=== PATIENT | female | born 1965 | race Caucasian/White ===

== ENCOUNTER 2024-01-24 23:04 | Emergency (ER) | payer OTHER, SELFPAY ==
[2024-01-24 23:05] VITALS: BMI 27.8
[2024-01-24 23:22] VITALS: BP 142/85; PULSE 88; RESP 18; TEMP 36.6; O2SAT 96
--- NOTE | 2024-01-24 23:51 | PD.EDEYE ---
ED Eye Problem RME/HPI General Chief complaint: Eye Problems Stated complaint: RIGHT EYE REDNESS AND SWELLING Time Seen by Provider: 01/24/24 23:51 Source: patient Arrival date/time: 01/24/24 23:04 58-year-old female presents emergency department complaining of right eye redness and yellow drainage that started this morning. Patient reports right eye is pruritic. Patient denies any vision changes. 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 Mode of arrival: ambulatory Limitations: no limitations Related Data Previous Rx's ?Medication ?Instructions ?Recorded hydrocodone 5 mg-acetaminophen 300 1 tab PO Q6H PRN pain #10 tabs 02/07/19 mg tablet ondansetron 4 mg disintegrating 4 mg PO Q6H PRN nausea and 02/07/19 tablet vomiting #10 tabs ondansetron 4 mg disintegrating 4 mg PO Q6H PRN nausea and 11/01/20 tablet vomiting #10 tabs albuterol sulfate 90 mcg/actuation 2 puff inhalation QID PRN 03/25/21 aerosol inhaler shortness of breath or wheezing #8.5 grams azithromycin 250 mg tablet See Rx Instructions PO .COMPLEX #6 03/25/21 tabs erythromycin 5 mg/gram (0.5 %) eye 0.5 inch ophthalmic (eye) QID 5 01/24/24 ointment days #3.5 grams Allergies Allergy/AdvReac Type Severity Reaction Status Date / Time prochlorperazine Allergy Severe HALLUCINATI Verified 03/25/21 19:08 ONS Sulfa (Sulfonamide Allergy Intermediate RASH Verified 03/25/21 19:08 Antibiotics) Review of Systems Review of Systems Systems Reviewed: All systems reviewed, normal except as documented Constitutional Constitutional: Reports system reviewed and no additional complaints, except as documented, Denies body ache(s), Denies chills and Denies fever(s) Eyes Eyes: Reports system reviewed and no additional complaints, except as documented, Denies change in vision, Reports eye discharge, Reports irritation and Reports itchy eyes ENT Ears, Nose, Mouth, and Throat: Reports system reviewed and no additional complaints, except as documented, Denies disequilibrium, Denies dizziness, Denies sore throat and Denies vertigo Cardiovascular Cardiovascular: Reports system reviewed and no additional complaints, except as documented, Denies chest pain and Denies dyspnea Respiratory Respiratory: Reports system reviewed and no additional complaints, except as documented, Denies chest congestion, Denies cough and Denies dyspnea Gastrointestinal Gastrointestinal: Reports system reviewed and no additional complaints, except as documented, Denies abdominal pain, Denies nausea and Denies vomiting Musculoskeletal Musculoskeletal: Reports system reviewed and no additional complaints, except as documented, Denies abnormal gait and Denies arthralgias Integumentary/Breasts Skin/Breast: Reports system reviewed and no additional complaints, except as documented, Denies erythema, Denies rash and Denies wounds Neurologic Neurologic: Reports system reviewed and no additional complaints, except as documented, Denies abnormal gait, Denies disequilibrium, Denies dizziness and Denies vertigo Allergic/Immunologic Allergic/Immunologic: Reports itchy eyes Past Medical History Past Medical History CARDIAC: Positive Hypercholesterolemia; Negative Cardiac Disorders or Congestive Heart Failure RESPIRATORY: Negative Chronic Obstructive Pulmonary Disease (COPD) or Asthma GASTROINTESTINAL: Positive Ulcer GENITOURINARY: Negative Renal Disease ENDOCRINE: Positive Diabetes Mellitus Type 2; Negative Diabetes Mellitus Type 1 HEMATOLOGIC: Negative Sickle Cell Disease Surgical History SURGICAL: Positive Thyroidectomy and Hysterectomy Social History SMOKING STATUS: Never smoker SUBSTANCE USE: does not use ED Exam General Limitations: Present no limitations General appearance: Present alert and in no apparent distress Head Head exam: Present atraumatic Eye Eye exam: Present PERRL, EOMI and conjunctival injection Expanded Eye Exam Eyelids: right: erythema and swelling eyelids Pupils: Bilateral: regular, round and reactive Sclera/Conjunctival: left: normal inspection and right: injection, exudate and tenderness ENT ENT exam: Present normal exam, normal oropharynx and mucous membranes moist Neck Neck exam: Present normal inspection, full ROM and trachea midline Chest Chest inspection: Present normal inspection and symmetric chest wall rise Respiratory Respiratory exam: Present normal lung sounds bilaterally Cardiovascular Cardiovascular exam: Present regular rate, normal rhythm and normal heart sounds Abdominal Exam Abdominal exam: Present soft and normal bowel sounds Extremities Exam Extremities exam: Present normal inspection and full ROM Back Exam Back exam: Present normal inspection and full ROM Neurological Exam Neurological exam: Present alert, oriented X3 and CN II-XII intact Psychiatric Psychiatric exam: Present normal affect and normal mood Skin Skin exam: Present warm, dry, intact and normal color Course Quality Measures none Orders Category Date Time Status Erythromycin Op Oint 0.5% Med 01/24/24 23:52 Discontinued 1 gm RIGHT EYE X1 ONE Vital Signs Vital signs: Vital Signs Temperature 98 F 01/24/24 23:22 Pulse Rate 88 01/24/24 23:22 Respiratory Rate 18 01/24/24 23:22 Blood Pressure 142/85 H 01/24/24 23:22 Pulse Oximetry (%) 96 01/24/24 23:22 Oxygen Delivery Method Room Air 01/24/24 23:22 96% room air within normal limits Eye MDM Narrative MDM Narrative:: 58-year-old female presents emergency department complaining of right eye redness and yellow drainage that started this morning. Patient reports right eye is pruritic. Patient denies any vision changes. 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 Eye exam consistent with bacterial conjunctivitis. Right eye sclera injection with yellow drainage. Upper and lower eyelid erythematous. Patient denies any vision changes. Patient discharged with erythromycin ointment and instructed to follow-up with Dr Montalvo grade school teacher as reported. Instructed to return to emergency department for any worsening symptoms or as needed. Patient data External records reviewed:: [facility] previous records Clinical information provided by:: patient Social determinants that could affect healthcare access:: none Patient has the following chronic illnesses:: See chart How is presenting disease/condition affected by chronic disease/condition?: uneffected by Evaluation data The following diagnostics were reviewed and interpreted by me:: other (specify) (Not applicable) Lab and/or radiology exams considered but not ordered:: Not applicable Interpretation Summary: Not applicable Medications / Prescriptions Medications or Prescriptions considered but not ordered:: Ordered Medication administrations:: Medication Administration History Discontinued Medications Erythromycin (Erythromycin Op Oint 0.5% 1 Gm Packet) 1 gm RIGHT EYE X1 ONE Stop: 01/24/24 23:53 Last Admin: 01/25/24 00:10 Dose: 1 gm Documented By: BONITA Co-signed By: MONICA Given Consultations Consultation(s) initiated? (list below): No Diagnosis Eye Problem Differential Diagnosis: corneal abrasion, conjunctivitis, acute iritis, periorbital cellulitis, subconjunctival hemorrhage and corneal ulcer Most likely diagnosis given after review of the tests above:: Bacterial conjunctivitis Admission Indicated Admission indicated?: not indicated Admission Request Was there a request for admission?: No Disposition Plan Disposition Plan: Discharge Discharge Attestation Discharge Attestation: The patient and all family members were given an opportunity to ask questions and understood the discharge instructions. Discharge instructions specifically effects, indications for sooner follow up or return to the emergency department, and the expected course of current diagnosis. Patient condition: Stable Discharge Plan Plan Patient Disposition: HOME (Self Care) Disposition Comment: Stable Prescriptions/Referrals Prescriptions/Med Rec: New erythromycin 5 mg/gram (0.5 %) ointment 0.5 inch ophthalmic (eye) QID 5 Days Qty: 3.5 0RF No Action ondansetron 4 mg tablet,disintegrating 4 mg PO Q6H PRN (Reason: nausea and vomiting) Qty: 10 0RF azithromycin 250 mg tablet See Rx Instructions .ROUTE .COMPLEX Qty: 6 0RF Rx Instructions: For 250 mg dose pack: take 500 mg today (day 1), then 250 mg for 4 days (days 2-5) Do not take with previous zofran/odansentron prescription albuterol sulfate 90 mcg/actuation HFA aerosol inhaler 2 puff inhalation QID PRN (Reason: shortness of breath or wheezing) Qty: 8.5 0RF hydrocodone-acetaminophen 5-300 mg tablet 1 tab PO Q6H MDD 3 PRN (Reason: pain) Qty: 10 0RF ondansetron 4 mg tablet,disintegrating 4 mg PO Q6H PRN (Reason: nausea and vomiting) Qty: 10 0RF Problem List Clinical Impression: Acute bacterial conjunctivitis of right eye Patient/Caregiver Discharge Instructions Education Materials: Understanding Red Eye ..., ED Conjunctivitis, Nonspecific Additional Instructions: Apply medication as prescribed. Follow-up with grade school teacher as discussed in 24 to 48 hours. Return to emergency department for any worsening symptoms or as needed. Print Language: [place]ese Stand Alone Forms: Hannah Award Info., Patient Portal Info Letter MD Attestation Attestation The patient was seen by the midlevel practitioner. I, the co-signing physician, was present during the entire ER visit. While I did not physically examine the patient, I was available for consultation as needed.
[2024-01-25] MEDS: Erythromycin Op Oint 0.5% 1 GM PACKET RIGHT EYE (00:10)
== END 2024-01-25 00:11 | disposition home or self-care (01) ==
LOC: SERX 01-25 03:40
PROVIDERS: Emergency Provider Emergency Medicine; PCP Family Medicine
DX: H10.31 Unspecified acute conjunctivitis, right eye (principal)
CPT/HCPCS: 99282; A9270

== ENCOUNTER → 2024-02-12 | Outpatient (CLI) | payer OTHER, SELFPAY ==
--- NOTE | 2024-02-12 15:48 | XR_ITS ---
Examination: PA lateral chest 2 views TECHNIQUE: Upright PA lateral chest 2 views Exam date and time: February 12, 2024 1600 hours Comparison March 25, 2021 INDICATIONS: Fatigue this month FINDINGS: Normal heart size Lungs are clear. Moderate osteopenia IMPRESSION: No active disease
== END | disposition home or self-care (01) ==
PROVIDERS: PCP Nurse Practitioner Family; Referring Provider Nurse Practitioner Family; Visit Provider Nurse Practitioner Family
DX: E89.0 Postprocedural hypothyroidism (principal); R53.83 Other fatigue
CPT/HCPCS: 71046

== ENCOUNTER → 2024-02-13 | Outpatient (CLI) | payer OTHER, SELFPAY ==
--- NOTE | 2024-02-13 16:57 | XR_ITS ---
Examination: Ultrasound soft tissue neck TECHNIQUE: By resolution grayscale sonographic images soft tissue neck Exam date and time: February 13, 2024 1700 hours INDICATIONS: Difficulty swallowing beginning 6 weeks ago, history partial thyroidectomy FINDINGS: No soft tissue mass or pathologic lymphadenopathy noted Incidental note incomplete visualization of the bilateral thyroid nodules IMPRESSION: No soft tissue neck mass noted Recommend dedicated thyroid sonography follow-up Consider standard fluoroscopically guided esophagram follow-up
== END | disposition home or self-care (01) ==
PROVIDERS: PCP Nurse Practitioner Family; Referring Provider Nurse Practitioner Family; Visit Provider Nurse Practitioner Family
DX: E89.0 Postprocedural hypothyroidism (principal); R53.83 Other fatigue
CPT/HCPCS: 76536

== ENCOUNTER → 2024-03-25 | Outpatient (CLI) | payer OTHER, SELFPAY ==
--- NOTE | 2024-03-25 11:30 | XR_ITS ---
Examination: Screening digital mammography, bilateral Computer aided detection 3-D breast Tomosynthesis, bilateral Date and time of exam: March 25, 2024 1137 hours Compared to mammograms dating to February 19, 2016 Indication: Screening Technique: Nonmagnified MLO, CC views of the breasts to been obtained, reconstructed from 3-D Tomosynthesis images. R2 computer aided detection program utilized for evaluation of suspicious masses and/or abnormal calcifications. 3-D Tomosynthesis images obtained. Findings: Scattered areas of fibroglandular density Stable focal asymmetry outer right breast CC view 6 mm focal asymmetry upper right breast MLO view, 2.9 cm from the nipple Impression: BI-RADS Category 0: Incomplete: Need additional imaging evaluation 6 mm focal asymmetry upper right breast MLO view, 2.9 cm from the nipple, recommend follow-up spot tomographic views upper outer quadrant right breast anterior depth, right breast sonography to complete the workup.
== END | disposition home or self-care (01) ==
PROVIDERS: PCP Nurse Practitioner Family; Referring Provider Nurse Practitioner Family; Visit Provider Nurse Practitioner Family
DX: Z12.31 Encounter for screening mammogram for malignant neoplasm of breast (principal); R92.8 Other abnormal and inconclusive findings on diagnostic imaging of breast; N64.89 Other specified disorders of breast
CPT/HCPCS: 77063; 77067

== ENCOUNTER → 2024-04-03 | Outpatient (CLI) | payer OTHER, SELFPAY ==
--- NOTE | 2024-04-03 10:30 | XR_ITS ---
Examination: Breast ultrasound, unilateral, right complete Date and time of exam: April 03, 2024 1023 hours INDICATIONS: Mammogram March 25, 2024 6 mm focal asymmetry upper right breast Technique: Real-time bruner scale ultrasonographic imaging performed right breast including all 4 quadrants as well as nipple retroareolar and axillary region. Findings: 10:00 cyst 4 x 3 mm No solid nodules IMPRESSION: BI-RADS Category 2: Benign findings
--- NOTE | 2024-04-03 11:15 | XR_ITS ---
Examination: Diagnostic digital mammography, unilateral, right Computer aided detection 3-D breast Tomosynthesis, unilateral Date and time of exam: April 03, 2024 1033 hours INDICATIONS: Mammogram March 25, 2024 6 mm focal asymmetry upper right breast MLO view 2.9 cm from the nipple Technique: Nonmagnified MLO, CC views of the right breast have been obtained, reconstructed from 3-D Tomosynthesis images. R2 computer aided detection program utilized for evaluation of suspicious masses and/or abnormal calcifications. 3-D Tomosynthesis images obtained. Findings: Scattered areas of fibroglandular density No suspicious mass is depicted on the spot compression views Impression: BI-RADS category 2: Benign findings Return to yearly follow-up mammography
== END | disposition home or self-care (01) ==
PROVIDERS: PCP Nurse Practitioner Family; Referring Provider Nurse Practitioner Family; Visit Provider Nurse Practitioner Family
DX: R92.323 Mammographic fibroglandular density, bilateral breasts (principal)
CPT/HCPCS: 76641; 77061; 77065; G0279

== ENCOUNTER 2024-04-22 02:26 | Observation (INO) | payer OTHER, SELFPAY ==
[2024-04-22] VITALS (9 sets, daily range): BP systolic 104–167; BP diastolic 58–95; PULSE 66–78; RESP 11–19; TEMP 36.2–37; O2SAT 94–98; BMI 28.3; BMI 28.1
--- NOTE | 2024-04-22 02:28 | EKG_ITS ---
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
--- NOTE | 2024-04-22 02:43 | XR_ITS ---
Examination: PA lateral chest 2 views Technique: Upright PA lateral chest 2 views Exam date and time: January 20, 2025 1546 hrs. Indications: Onset chest pain today Findings: Normal heart size Lungs are clear. The osseous structures are intact Impression: No active disease
--- NOTE | 2024-04-22 02:44 | PD.EDRME ---
Rapid Medical Screening Exam RME Arrival date/time: 04/22/24 02:26 58-year-old female past medical history of gallstones presents emergency department complaining of chest pain that radiates to her back that started earlier today. Chief Complaint: Chest Pain Vital signs: Vital Signs Temperature 98.6 F 04/22/24 02:33 Pulse Rate 78 04/22/24 02:33 Respiratory Rate 17 04/22/24 02:33 Blood Pressure 151/95 H 04/22/24 02:33 Pulse Oximetry (%) 96 04/22/24 02:33 Oxygen Delivery Method Room Air 04/22/24 02:33 Vital signs reviewed by provider: Yes
[2024-04-22 03:21] LABS: Collection Type, Urine Clean Catch
[2024-04-22 03:37] LABS: Basophils # (Auto) 0.1 Thou/mm3 (0.0-0.2); Basophils % (Auto) 1 % (0-2.5); Eosinophils # (Auto) 0.4 Thou/mm3 (0.0-0.5); Eosinophils % (Auto) 5 % (0-10); Hematocrit 40.4 % (36.0-46.0); Hemoglobin 14.5 g/dL (12.0-16.0); Immature Granulocytes % (Auto) 0 % (0-0); Immature Granulocytes Auto 0.02 Thou/mm3 (0.00-0.00); Lymphocytes # (Auto) 3.1 Thou/mm3 (1.0-4.8); Lymphocytes % (Auto) 39 % (10-50); Mean Corpuscular HGB Conc 35.9 g/dl (31.0-37.0); Mean Corpuscular Hemoglobin 32.6 pg (25.0-35.0); Mean Corpuscular Volume 91 fL (80-100); Monocytes # (Auto) 0.8 Thou/mm3 (0.0-0.8); Monocytes % (Auto) 10 % (0-12); Neutrophils # (Auto) 3.5 Thou/mm3 (1.8-7.7); Neutrophils % (Auto) 45 % (37-80); Nucleated Red Blood Cell % 0 /100 WBC (0); Platelet Count 206 Thou/mm3 (140-440); RDW Standard Deviation 42.1 fL (36.4-46.3); Red Blood Count 4.45 Miln/mm3 (4.00-5.20); White Blood Count 7.8 Thou/mm3 (3.6-11.0)
[2024-04-22 03:40] LABS: Bilirubin,Urine Negative (Negative); Blood,Urine 1+ (Negative); Clarity,Urine Clear (Clear/Hazy); Color,Urine Lt-Yellow (Lt Yel-Yel); Glucose, Urine 1+ (Negative); Ketones,Urine Negative (Negative); Leukocyte Esterase,Urine Negative (Negative); Nitrite,Urine Negative (Negative); Protein,Urine Negative (Neg - Trace); RBC,Urine 1 /hpf (0-3); Specific Gravity,Urine 1.021 (1.001-1.035); Squamous Epithelial Cell,Urine < 1 /hpf (0-5); Urobilinogen,Urine Negative mg/dL (0.0-1.0); WBC,Urine < 1 /hpf (0-5)
[2024-04-22 03:48] LABS: Amphetamine/Methamp Scrn,U Negative (Negative); Barbiturate Screen,Urine Negative (Negative); Benzodiazepines Screen,Urine Negative (Negative); Benzoylecgonine Screen, Ur Negative (Negative); Fentanyl Screen,Urine Negative (Negative); Opiate Screen,Urine Negative (Negative); THC Screen,Urine Negative (Negative)
[2024-04-22 04:03] LABS: INR 0.9 (0.9-1.3); Partial Thromboplastin Time 26.1 Seconds (22.0-36.0); Prothrombin Time 9.8 Seconds (9.0-12.2)
[2024-04-22 04:14] LABS: B-Type Natriuretic Peptide < 20 pg/mL (0-100)
[2024-04-22 04:36] LABS: Alanine Aminotransferase 59 U/L (10-49); Albumin, Serum 4.5 gm/dL (3.4-4.8); Albumin/Globulin Ratio 2.3 (1.2-2.2); Alkaline Phosphatase 92 U/L (46-116); Anion Gap 19 (7-16); Aspartate Amino Transferase 48 U/L (0-34); BUN/Creatinine Ratio 21 Ratio (12-20); Bilirubin,Total < 0.2 mg/dL (0.3-1.2); Blood Urea Nitrogen 17 mg/dL (9-23); Calcium 9.1 mg/dL (8.3-10.6); Calcium (Corrected) 9.1 mg/dL (8.5-10.1); Chloride 106 mMol/L (98-107); Creatinine (Component) 0.8 mg/dL (0.6-1.3); Estimated Creatinine Clearance 71.4 mL/min (>60); Glucose 179 mg/dL (74-106); Lipase 56 U/L (12-53); Magnesium 1.8 mg/dL (1.6-2.6); Osmolality,Calculated 281 (275-295); Potassium 4.1 mMol/L (3.4-5.1); Sodium 138 mMol/L (136-145); Total Protein 6.5 gm/dL (5.7-8.2); Troponin I < 0.002 ng/mL (0.0-0.045); eGFR > 60 See Note
[2024-04-22 04:39] LABS: Carbon Dioxide 13.2 mMol/L (20.0-31.0)
--- NOTE | 2024-04-22 04:52 | EDNOTE_ITS ---
ED Chest Pain RME/HPI General Chief Complaint: Chest Pain Stated Complaint: CHEST AREA PAIN Time Seen by Provider: 04/22/24 03:42 Arrival date/time: 04/22/24 02:26 RME / HPI RME / HPI narrative: 04/22/24 02:26 58-year-old female past medical history of gallstones presents emergency department complaining of chest pain that radiates to her back that started earlier today. ------- Dr. Mckay?s Main ED Evaluation: 58yo female with pmhx DM, HLD presents to the ED for a chief complaint of intermittent mid-chest pain x 0130. Patient states her pain radiates to her upper back, rating her worst pain a 8-9 out of 10 in severity. She describes it as tightness in nature. Patient states her pain is now more in her epigastric area. She reports associated nausea and sweating. She denies any vomiting, fever, chills or any other associated symptom. Denies any tobacco or iliicit drug use. Patient currently rates her pain a 5 out of 10 in severity. Related Data Previous Rx's ?Medication ?Instructions ?Recorded hydrocodone 5 mg-acetaminophen 300 1 tab PO Q6H PRN pa in #10 tabs 02/07/19 mg tablet ondansetron 4 mg disintegrating 4 mg PO Q6H PRN nausea and 02/07/19 tablet vomiting #10 tabs ondansetron 4 mg disintegrating 4 mg PO Q6H PRN nausea and 11/01/20 tablet vomiting #10 tabs albuterol sulfate 90 mcg/actuation 2 puff inhalation Q ID PRN 03/25/21 aerosol inhaler shortness of breath or wheez ing #8.5 grams azithromycin 250 mg tablet See Rx Instructions PO .COM PLEX #6 03/25/21 tabs Allergies Allergy/AdvReac Type Severity Reaction Status Date / Time prochlorperazine Allergy Severe HALLUCINATI Verified 03/25/21 19:08 ONS Sulfa (Sulfonamide Allergy Intermediate RASH Verified 03/25/21 19:08 Antibiotics) Review of Systems Review of Systems Systems Reviewed: All systems reviewed, normal except as documented Past Medical History Past Medical History CARDIAC: Positive Hypercholesterolemia; Negative Cardiac Disorders or Congestive Heart Failure RESPIRATORY: Negative Chronic Obstructive Pulmonary Disease (COPD) or Asthma GASTROINTESTINAL: Positive Ulcer GENITOURINARY: Negative Renal Disease ENDOCRINE: Positive Diabetes Mellitus Type 2; Negative Diabetes Mellitus Type 1 HEMATOLOGIC: Negative Sickle Cell Disease Surgical History SURGICAL: Positive Thyroidectomy and Hysterectomy Social History SMOKING STATUS: Never smoker SUBSTANCE USE: does not use ED Exam Narrative Physical exam: GENERAL APPEARANCE: alert and oriented x 4, well-developed, well-nourished, no acute distress VITALS: All vitals were reviewed and the pulse ox is 96% on room air, which is normal according to my interpretation. HEENT: Normocephalic, atraumatic; pupils equal, round, reactive to light; EOMI; mucous membranes pink, moist; oropharynx clear NECK: Supple LUNGS: CTABL; no wheezes, no rales, no rhonchi HEART: Regular rate, regular rhythm; normal S1, S2; no murmurs ABDOMEN: non distended; normal BS; soft, no tenderness, no guarding, no rebound; no masses, no organomegaly, no hernia BACK: no CVA tenderness EXTREMITIES: atraumatic; no edema NEUROLOGIC: awake; alert and oriented x4; cranial nerves II-XII grossly intact; no focal sensory or motor deficits PSYCHIATRIC: appropriate mood and affect SKIN: warm, dry, normal color; no rashes Course Course Course Narrative: CXR is ordered for determining the etiology of chest pain. 0600: Care signed out to Dr. Murillo (emergency physician). Past medical, surgical, social and family history reviewed. Vitals and home medications reviewed. Results and treatment plan discussed. They will assume the care of the patient at this time and will follow the patient, pending labs. Quality Measures none Orders Category Date Time Status EKG (ED ONLY) *Do not use* NOW Care 04/22/24 02:28 Completed EKG (ED Only) Stat Exams 04/22/24 02:28 Draft XR chest 2V Stat Exams 04/22/24 02:43 Taken Alcohol, Blood Medical Stat Lab 04/22/24 04:47 Results B-Type Natriuretic Peptide Stat Lab 04/22/24 03:06 Completed BMP [Basic Metabolic Panel] Stat Lab 04/22/24 04:47 Results CBC Stat Lab 04/22/24 03:06 Completed Comprehensive Metabolic Panel Stat Lab 04/22/24 03:06 Completed Drug Screen,Urine Stat Lab 04/22/24 03:08 Completed Ketone [Beta Hydroxybutyrate] Stat Lab 04/22/24 04:47 Results Lactate (Lactic Acid) Stat Lab 04/22/24 04:47 Completed Lipase Stat Lab 04/22/24 03:06 Completed Magnesium Stat Lab 04/22/24 03:06 Completed Partial Thromboplastin Time Stat Lab 04/22/24 03:06 Completed Prothrombin Time with INR Stat Lab 04/22/24 03:06 Completed Troponin I Stat Lab 04/22/24 03:06 Completed Troponin I Stat Lab 04/22/24 04:47 Results Urinalysis Stat Lab 04/22/24 03:08 Completed Morphine Inj Med 04/22/24 04:53 Active 2 mg IVP Q30M PRN Ondansetron Inj [Zofran Inj] Med 04/22/24 04:53 Discontinued 4 mg IV X1 ONE Vital Signs Vital signs: Vital Signs Temperature 98.6 F 04/22/24 02:33 Pulse Rate 78 04/22/24 02:33 Respiratory Rate 17 04/22/24 02:33 Blood Pressure 151/95 H 04/22/24 02:33 Pulse Oximetry (%) 96 04/22/24 02:33 Oxygen Delivery Method Room Air 04/22/24 02:33 Chest Pain MDM Narrative MDM Narrative:: Scribe Attestation: 04/22/24 - Tierra, Yumiko Zhao am scribing for and in the presence of Dr. Mckay. Patient data External records reviewed:: [facility] previous records (Per chart review, patient has no relevant previous ED visits or admissions to this facility.) Clinical information provided by:: patient Social determinants that could affect healthcare access:: none Patient has the following chronic illnesses:: DM, HLD How is presenting disease/condition affected by chronic disease/condition?: uneffected by Evaluation data The following diagnostics were reviewed and interpreted by me:: lab results, ra diology exam(s) and EKG tracing(s) Lab and/or radiology exams considered but not ordered:: none Interpretation Summary: CBC is normal, PT and INR are normal, PTT is normal, troponin is normal, BNP is normal, Lipase is 56, Lactate is normal, UA is unremarkable, UDS is negative, according to my interpretation. CXR shows normal cardiac silhouette, normal sharp diaphragmatic edge, no infiltrates, normal costophrenic angles, according to my interpretation. EKG done at 237, NSR, rate of 80, left axis deviation, no ectopy, no acute ischemia, according to my interpretation. Medications / Prescriptions Medications or Prescriptions considered but not ordered:: none Medication administrations:: Medication Administration History Morphine Sulfate (Morphine Sulf Inj 10 Mg/Ml Vial) 2 mg IVP Q30M PRN PRN Reason: PAIN Discontinued Medications Ondansetron HCl (Ondansetron Inj 2 Mg/Ml Inj 2 Ml) 4 mg IV X1 ONE; Protocol Stop: 04/22/24 04:54 see above Consultations Consultation(s) initiated? (list below): No Diagnosis Chest Pain Differential Diagnosis: other (gallbladder pathology, pancreatitis, PUD, gastritis, NSTEMI, STEMI, angina) Most likely diagnosis given after review of the tests above:: pending at sign out Admission Indicated Admission indicated?: not indicated Admission Request Was there a request for admission?: No Disposition Plan Disposition Plan: other (specify) (Signed out to Dr. Murillo at 0600 pending repeat labs.) Discharge Plan Plan Disposition Comment: Stable at sign out. Prescriptions/Referrals Prescriptions/Med Rec: No Action ondansetron 4 mg tablet,disintegrating 4 mg PO Q6H PRN (Reason: nausea and vomiting) Qty: 10 0RF azithromycin 250 mg tablet See Rx Instructions .ROUTE .COMPLEX Qty: 6 0RF Rx Instructions: For 250 mg dose pack: take 500 mg today (day 1), then 250 mg for 4 days (days 2-5) Do not take with previous zofran/odansentron prescription albuterol sulfate 90 mcg/actuation HFA aerosol inhaler 2 puff inhalation QID PRN (Reason: shortness of breath or wheezing) Qty: 8.5 0RF hydrocodone-acetaminophen 5-300 mg tablet 1 tab PO Q6H MDD 3 PRN (Reason: pain) Qty: 10 0RF ondansetron 4 mg tablet,disintegrating 4 mg PO Q6H PRN (Reason: nausea and vomiting) Qty: 10 0RF Referrals: Marita Ellington PA-C ([facility]) [Primary Care Provider] - In 1 week Problem List Clinical Impression: Chest pain, Epigastric abdominal pain Patient/Caregiver Discharge Instructions Print Language: Persian
[2024-04-22 05:03] LABS: Lactate (Lactic Acid) 1.9 mMol/L (0.4-2.0)
[2024-04-22 05:12] LABS: Beta Hydroxybutyrate 0.2 mmol/L (<0.6)
[2024-04-22] MEDS: MORPHINE SULF INJ 10 MG/ML VIAL 2 MG IVP (05:59)
[2024-04-22] MEDS: ONDANSETRON INJ 2 MG/ML INJ 2 ML 4 MG IV (05:59)
--- NOTE | 2024-04-22 06:22 | XR_ITS ---
Examination: CT chest with intravenous contrast CT abdomen with intravenous contrast CT pelvis with intravenous contrast 2-D coronal and sagittal reconstructions Time of exam: April 22, 2024 0826 hours INDICATIONS: Onset chest pain abdominal pain beginning this morning CTDI: vol (mGy) : 7.62 DLP: (mGycm): 531 Technique: Multiple axial images of the chest, abdomen and pelvis with intravenous contrast, 3.0 mm slice thickness. Images obtained post intravenous injection Isovue 370 60 cc. 2-D sagittal and coronal reconstructions. Low dose protocols were performed. One or more of the following dose reduction techniques were used; automated exposure control, adjustment of the mA and/or KV according to patient size, use of iterative reconstruction technique. Findings: No thoracic aortic aneurysm dilatation No pulmonary artery emboli on this non-CTA study No pneumonia or pulmonary edema or pleural disease No liver or splenic lesion Gallstones No pancreatic or adrenal mass Left parapelvic cysts and also mild left hydronephrosis, no ureteral calculi Aorta normal size Normal appendix No bowel obstruction Absent uterus No pelvic mass Urinary bladder intact Prominent osteopenia IMPRESSION: No pneumonia pulmonary edema or pleural disease Cholelithiasis Mild left hydronephrosis, consider urinary tract infection, no ureteral calculi Normal appendix No bowel obstruction or diverticulitis
[2024-04-22] MEDS: SODIUM CHLORIDE 0.9% 1000 ML 1,000 ML 999 ML IV (06:48)
--- NOTE | 2024-04-22 06:54 | PD.EDADDENDU ---
Emergency Room Addendum <Klali Gimenez - Last Filed: 04/22/24 09:46> Addendum Narrative: 0600: Care assumed from Dr. Mckay, the previous shift emergency physician. Past medical, surgical, social and family history reviewed. Vitals and home medications reviewed. I will assume the care of the patient at this time, pending remainder of diagnostic tests and final disposition. Please refer to the emergency department record for history and examination from initial visit.? Physical exam by me shows patient under no acute distress at this time. RADIOLOGY Procedure(s): CT chest abdomen pelvis w Accession Number(s): [id number] cc: Marita Ellington PA-C ([facility]); Mike Pierre MD; Kolby Murillo MD~ Examination: CT chest with intravenous contrast CT abdomen with intravenous contrast CT pelvis with intravenous contrast 2-D coronal and sagittal reconstructions Time of exam: April 22, 2024 0826 hours INDICATIONS: Onset chest pain abdominal pain beginning this morning CTDI: vol (mGy) : 7.62 DLP: (mGycm): 531 Technique: Multiple axial images of the chest, abdomen and pelvis with intravenous contrast, 3.0 mm slice thickness. Images obtained post intravenous injection Isovue 370 60 cc. 2-D sagittal and coronal reconstructions. Low dose protocols were performed. One or more of the following dose reduction techniques were used; automated exposure control, adjustment of the mA and/or KV according to patient size, use of iterative reconstruction technique. Findings: No thoracic aortic aneurysm dilatation No pulmonary artery emboli on this non-CTA study No pneumonia or pulmonary edema or pleural disease No liver or splenic lesion Gallstones No pancreatic or adrenal mass Left parapelvic cysts and also mild left hydronephrosis, no ureteral calculi Aorta normal size Normal appendix No bowel obstruction Absent uterus No pelvic mass Urinary bladder intact Prominent osteopenia IMPRESSION: No pneumonia pulmonary edema or pleural disease Cholelithiasis Mild left hydronephrosis, consider urinary tract infection, no ureteral calculi Normal appendix No bowel obstruction or diverticulitis Dictated By: Mike Pierre MD Procedure(s): XR chest 2V Accession Number(s): [id number] cc: Marita Ellington PA-C ([facility]); Mike Pierre MD; Deidre RyanMAT[facility])Harris~ Examination: PA lateral chest 2 views Technique: Upright PA lateral chest 2 views Exam date and time: January 20, 2025 1546 hrs. Indications: Onset chest pain today Findings: Normal heart size Lungs are clear. The osseous structures are intact Impression: No active disease Dictated By: Mike Pierre MD <Kolby Murillo MD - Last Filed: 04/22/24 09:58> Addendum Narrative: 0600: Care assumed from Dr. Mckay, the previous shift emergency physician. Past medical, surgical, social and family history reviewed. Vitals and home medications reviewed. I will assume the care of the patient at this time, pending remainder of diagnostic tests and final disposition. Please refer to the emergency department record for history and examination from initial visit.? Physical exam by me shows patient under no acute distress at this time. RADIOLOGY Procedure(s): CT chest abdomen pelvis w Accession Number(s): [id number] cc: Marita Ellington PA-C ([facility]); Mike Pierre MD; Kolby Murillo MD~ Examination: CT chest with intravenous contrast CT abdomen with intravenous contrast CT pelvis with intravenous contrast 2-D coronal and sagittal reconstructions Time of exam: April 22, 2024 0826 hours INDICATIONS: Onset chest pain abdominal pain beginning this morning CTDI: vol (mGy) : 7.62 DLP: (mGycm): 531 Technique: Multiple axial images of the chest, abdomen and pelvis with intravenous contrast, 3.0 mm slice thickness. Images obtained post intravenous injection Isovue 370 60 cc. 2-D sagittal and coronal reconstructions. Low dose protocols were performed. One or more of the following dose reduction techniques were used; automated exposure control, adjustment of the mA and/or KV according to patient size, use of iterative reconstruction technique. Findings: No thoracic aortic aneurysm dilatation No pulmonary artery emboli on this non-CTA study No pneumonia or pulmonary edema or pleural disease No liver or splenic lesion Gallstones No pancreatic or adrenal mass Left parapelvic cysts and also mild left hydronephrosis, no ureteral calculi Aorta normal size Normal appendix No bowel obstruction Absent uterus No pelvic mass Urinary bladder intact Prominent osteopenia IMPRESSION: No pneumonia pulmonary edema or pleural disease Cholelithiasis Mild left hydronephrosis, consider urinary tract infection, no ureteral calculi Normal appendix No bowel obstruction or diverticulitis Dictated By: Mike Pierre MD Procedure(s): XR chest 2V Accession Number(s): [id number] cc: Marita Ellington PA-C ([facility]); Mike Pierre MD; Harris Gannon (FNP)~ Examination: PA lateral chest 2 views Technique: Upright PA lateral chest 2 views Exam date and time: January 20, 2025 1546 hrs. Indications: Onset chest pain today Findings: Normal heart size Lungs are clear. The osseous structures are intact Impression: No active disease Dictated By: Mike Pierre MD Patient was signed out to me from Dr. Mckay at 6:00 this morning. He said that he is going to repeat another CMP because he does not believe why the bicarb was too low. And the BMP repeated showing the same bicarb was 15.9. And an anion gap is 16 at this time. Betahydroxy is negative. Blood sugar is 178. Lactic acid negative. Liver enzyme is chronically elevated especially the ALT. Troponin is negative twice. BNP is negative. UA is negative. U tox negative. Alcohol is negative. Twelve-lead EKG that was done at 237 8 AM and interpreted by me: Normal sinus rhythm with heart rate of 80. Left axis deviation. No ST elevation or depression. No PVC. No STEMI. Regular rate and rhythm. 2 view chest x-ray interpreted by me: Clear lungs. Heart normal. Mediastinum normal. Normal bones. CT chest abdomen and pelvis was done and results was posted above. There is no surgical abdomen at this time. After I took over the patient care, I put the patient on normal saline bolus. For what I think is a dehydration with metabolic acidosis. But there is no DKA. Blood sugar is borderline high but not too much. Bicarb was abnormally low. But dehydration can cause the same thing. BUN of 17 which is consistent with dehydration still. 9:55 AM, I spoke to and discussed with , resident of Dr. Corona, hospitalist on-call. He agrees to assess the patient for admission. Diagnosis: Chest pain Abdominal pain Metabolic acidosis Dehydration Condition: Stable
[2024-04-22 07:34] LABS: Alcohol, Blood Medical < 3.0 mg/dL (0-10.0); Anion Gap 16 (7-16); BUN/Creatinine Ratio 23 Ratio (12-20); Blood Urea Nitrogen 16 mg/dL (9-23); Calcium 8.9 mg/dL (8.3-10.6); Chloride 107 mMol/L (98-107); Creatinine (Component) 0.7 mg/dL (0.6-1.3); Estimated Creatinine Clearance 81.6 mL/min (>60); Glucose 178 mg/dL (74-106); Osmolality,Calculated 279 (275-295); Sodium 137 mMol/L (136-145); Troponin I < 0.002 ng/mL (0.0-0.045); eGFR > 60 See Note
[2024-04-22 07:48] LABS: Carbon Dioxide 13.9 mMol/L (20.0-31.0)
--- NOTE | 2024-04-22 08:28 | PC.NURSE ---
PT REPORTS 4/10 UPPER ABD PAIN. REPORTS IT IS FEELING MUCH BETTER AFTER MEDICATION SHE RECEIVED FROM PREVIOUS NURSE. CALL JON REMAINS IN REACH.
--- NOTE | 2024-04-22 12:08 | ESHP_ITS ---
<Statement entered by Darrel Gandara MD - 04/22/24 15:46> Senior Resident Attestation: I supervised/discussed management plan with internal recruiter physician Dr. Calhoun, and was involved in the care of this patient. I personally saw and examined the patient and discussed the assessment and plan with the entire medicine team, including my attending. I agree with the assessment and plan as documented. Patient is 58 years old female with past medical history of type 2 diabetes mellitus, hyperlipidemia presented to the ED due to sudden onset of chest pain. She reported that her chest pain was radiating to her back and later migrated toward her epigastrium. Patient also reported feeling nauseous. She reported that chest pain woke her up tonight and was not associated with any deep breathing, movement or physical activity. On admission her blood pressure 167/72, other vitals are within normal limits. Labs showed bicarbonate 13.2, anion gap 19, AST 48, ALT 59, troponin negative. EKG was unremarkable. Patient reports she takes metformin at home for diabetes. Patient was admitted for further workup. Gastroenterology was consulted, patient is NPO, Zofran as needed for nausea or vomiting. Patient's care was discussed with attending physician, Dr. Corona. Darrel Gandara MD PGY-2. Documentation for date of: 04/22/24 HPI History of Present Illness History of present illness: 58 y/o female with PMHx of DM2 who comes to [facility] for an initial evaluation of bilateral chest pain, rated 10 out of 10, radiating to part of the back, not relieved with nothing. Patient reports that he never had chest pain like this before, and awoken her from her sleep at 1:30 AM. She did have associated nausea with it, however did not vomit any. She reports that she thought was initially acid reflux, however this time to come to the ED to get further worked up. She does report that she was going to see Dr. Desai to get an endoscopy and colonoscopy was scheduled for the of this month due to worsening GERD symptoms. She reports that she has not been having on and off diarrhea for some time now and usually can go diarrhea 3 times a day. She does note that she sometimes vomits up blood, last time was Monday. She denies any having any weight loss but says that she has had poor oral intake due to her symptoms. She denies having a headache, confusion, numbness, tingling, palpitations shortness of breath or other associated symptoms. Says that she has a history of gallstones but has never been hospitalized for them. Also denies being hospitalized before. Says that she had a partial thyroidectomy for thyroid nodules. ED course: Pt arrived to the ED with a temperature of 98.6, heart rate 78, respiratory rate 17, blood pressure 151/95, saturating 96% room air. Patient was worked up and was found to have white count 7.8, hemoglobin of 14.5, sodium of 130, potassium 4.1, chloride of 106, bicarb 13, BUN/creatinine 17 and 0.8 respectively, glucose 179, anion gap of 19, magnesium 1.8, lipase 56, lactic acid 1.9, troponin negative x 2. EKG showed normal sinus rhythm possible left axis deviation with a rate of 80. Chest x-ray was unremarkable. Chest abdomen pelvis CT was done and showed cholelithiasis, some left-sided hydronephrosis. Patient was given Zofran x 1 morphine 2 mg x 1, 1 L bolus. Medicine was consulted and patient was admitted to floors. Past medical history: As above Surgeries: Partial thyroidectomy, hysterectomy Allergies: Compazine, sulfa drugs Meds: Metformin, statin Family history: Denies having a family history of heart disease, stroke, stents or open heart surgery. Social history: Patient was born in [place] raised in the [place], however lived in [place] in [place] for 2 and 40 years respectively. 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 Says she is and has 15 grandchildren. One of her kids still lives with her due to her having a stroke and needs extra help. She denies having any smoking history, has never been a heavy drinker, denies any drug use including IV drug use and marijuana. She also says that she used to exercise a lot, but has not been exercising a lot as of late. She says that her eating habits have been bad lately, but generally eats healthy, however has not been eating great as of late. Review of Systems Review of Systems Narrative Review of Systems: Constitutional: No fever, chills, fatigue, weakness, weight loss HEENT: No eye pain, vision loss, ear pain, hearing loss, dysphagia, Cardiovascular: + chest pain, palpitations, edema, pain with walking Respiratory: No cough, shortness of breath, wheezing GI: + nausea and abd pain, no vomiting or diarrhea, constipation, blood in stool, loss of appetite, heartburn Extremities: No presence of pitting edema MSK: No back pain, joint pain, joint swelling Neuro: No dizziness, numbness, weakness, headaches, seizures, tremors Psych: No anxiety, depression Exam Vital Signs Temp Pulse Resp BP Pulse Ox O2 Del Method 97.9 F 67 11 L 140/58 H 96 Room Air 04/22/24 11:17 04/22/24 11:17 04/22/24 11:17 04/22/24 11:17 04/22/24 11:17 04/22/24 11:17 Narrative Exam General: AAOx3, NAD, pleasant woman, does not look 58 HEENT: Moist mucous membranes, conjunctiva clear, EOMI, PERRLA, Cardiovascular: S1, S2, radial pulses +2 bilat, RRR Pulmonary: CTAB bilat no cough, no wheezing GI: No tenderness to light or deep palpitation, no guarding, rigidity, rebound tenderness or distension Extremities: No presence of trace or pitting edema in lower extremities bilaterally, dorsalis pedis pulses +2 bilaterally Neuro: AAOx3, no focal motor or sensory deficits in the UE or LE bilat Psych: Good judgement, thought and behavior. Cooperative Results: Labs 04/23/24 04:40 04/23/24 04:40 Labs: Short CBC 04/22/24 Range/Units 03:06 WBC 7.8 (3.6-11.0) Thou/mm3 Hgb 14.5 (12.0-16.0) g/dL Hct 40.4 (36.0-46.0) % Plt Count 206 (140-440) Thou/mm3 BMP 04/22/24 04/22/24 03:06 04:47 Sodium 138 137 Potassium 4.1 4.0 Chloride 106 107 Carbon Dioxide 13.2 L* 13.9 L* BUN 17 16 Creatinine 0.8 0.7 Glucose 179 H 178 H Calcium 9.1 8.9 Cardiac Enzymes 04/22/24 04/22/24 Range/Units 03:06 04:47 Troponin I < 0.002 < 0.002 (0.0-0.045) ng/mL Liver Function 04/22/24 Range/Units 03:06 Total Bilirubin < 0.2 L (0.3-1.2) mg/dL AST 48 H (0-34) U/L ALT 59 H (10-49) U/L Alkaline Phosphatase 92 (46-116) U/L Albumin 4.5 (3.4-4.8) gm/dL Urine 04/22/24 Range/Units 03:08 Urine Color Lt-Yellow (Lt Yel-Yel) Urine Clarity Clear (Clear/Hazy) Urine pH 6.0 (5.0-7.0) Ur Specific [place] 1.021 (1.001-1.035) Urine Protein Negative (Neg - Trace) Urine Glucose (UA) 1+ A (Negative) Quality Measures Quality Measures none Medications Home Medications and Allergies Allergies Allergy/AdvReac Type Severity Reaction Status Date / Time prochlorperazine Allergy Severe HALLUCINATI Verified 03/25/21 19:08 ONS Sulfa (Sulfonamide Allergy Intermediate RASH Verified 03/25/21 19:08 Antibiotics) Visit Medications Morphine Sulfate (Morphine Sulf Inj 10 Mg/Ml Vial) 2 mg IVP Q30M PRN PRN Reason: PAIN Last Admin: 04/22/24 05:59 Dose: 2 mg Discontinued Medications Sodium Chloride (Ns) 1,000 mls @ 999 mls/hr IV .Q1H1M ONE Stop: 04/22/24 07:24 Last Infusion: 04/22/24 07:49 Dose: Infused Ondansetron HCl (Ondansetron Inj 2 Mg/Ml Inj 2 Ml) 4 mg IV X1 ONE; Protocol Stop: 04/22/24 04:54 Last Admin: 04/22/24 05:59 Dose: 4 mg Assessment & Plan Plan Assessment 58 y/o female with PMHx of rgk-cligxar-mglmtnzrd type 2 diabetes who is currently admitted for evaluation of gastritis, and episodes of hematemesis, and NVD #Abdominal pain #History of GERD #Previous episodes of hematemesis #Poor oral intake DDx: Gastritis, IBD, IBS, pancreatitis, gastroenteritis, esophageal varices Patient does have history of GERD so it is likely that patient may also have gastritis Patient may have a component of IBD, or IBS, however patient is older and is unlikely for this patient to have this, however we would need endoscopy and colonoscopy to rule out these conditions Pancreatitis was a working differential for patient as patient had some pain in the back, however lipase was minimally elevated and patient did not have white count so this is unlikely at this time Patient could have also have ate something that could be irritating stomach Esophageal varices very unlikely as patient has never been a heavy drinker Will need to further workup and patient will get inpatient workup today as patient's last meal was at [address] Desai will see patient for possible EGD Plan: ? GI consulted, appreciate recs ? Zofran ? Pain control as needed, will avoid NSAIDs at this time ? N.p.o. now #Metabolic acidosis Working diagnosis at this time is chronic diarrhea leading to GI losses for low bicarbonate Patient does confirm a history of having diarrhea up to 3 episodes consistently No other electrolyte derangements at this time Anion gap 16 We will keep an eye trend with CMP at this time There has been no VBG or ABG ordered and patient is on room air at this time Beta hydroxybutyrate 0.2 when last checked Plan: ? Trend with CMP #History of mmb-fdcueij-fyrcbyhly type 2 diabetes A1c of 7 Plan: ? SSI ? Glucose checks every 6 hours ? Hypoglycemic protocol in place #Health Maintenance Disposition: Med telemetry DVT prophylaxis: Lovenox GI prophylaxis: Protonix Diet: N.p.o. CODE STATUS: Full Patient seen and care discussed with my senior resident, Dr. Gandara , and my attending physician, Dr. Chloe Calhoun, PGY-1 Attending Provider Attestation/Addendum I reviewed labs, imaging, EKG, home medications and prior available records. Face to face evaluation was performed by me. I have personally examined the patient and discussed assessment and plan with the IM team. I reviewed the resident note and agree with the plan with exceptions as below. 58-year-old female who presented with nausea, vomiting, and epigastric pain that radiates to her chest. She was admitted for GI bleed workup Epigastric pain Chest pain at rest Intractable nausea and vomiting Hematemesis Possible upper GI bleed IV hydration Zofran as needed for nausea Management of pain as needed Monitor electrolytes Monitor H&H Consulted GI for EGD N.p.o. prior to EGD
--- NOTE | 2024-04-22 14:56 | ESCONSULT_ITS ---
HPI Data of Consult Requesting Physician: Jan Corona MD [facility] Consult Narrative Reason for consult: Chest pain, abdominal pain. History of present illness: 58 years old female evaluated request of the internal medicine team Patient presented with bilateral chest pain CT scan of the abdomen chest and pelvis shows cholelithiasis mild left hydronephrosis otherwise negative Troponin was less than 0.002 She was scheduled as an outpatient for a colonoscopy as well as upper endoscopy for evaluation for symptoms She also had nausea vomiting cc:: cc: Jan Corona MD Review of Systems Review of Systems Systems Reviewed: All systems reviewed, normal except as documented Past Medical History Surgical History OTHER SURGICAL HX: As in the history of present illness Meds Home Medications and Allergies Allergies Allergy/AdvReac Type Severity Reaction Status Date / Time prochlorperazine Allergy Severe HALLUCINATI Verified 03/25/21 19:08 ONS Sulfa (Sulfonamide Allergy Intermediate RASH Verified 03/25/21 19:08 Antibiotics) Exam Vital Signs Temp Pulse Resp BP Pulse Ox O2 Del Method 97.9 F 67 11 L 140/58 H 96 Room Air 04/22/24 11:17 04/22/24 11:17 04/22/24 11:17 04/22/24 11:17 04/22/24 11:17 04/22/24 11:17 Constitutional Comments: Alert oriented Routine Respiratory Exam Comments: Normal to auscultation Routine Abdominal Exam Comments: Soft nontender Results Labs 04/22/24 03:06 04/22/24 18:51 Labs: Short CBC 04/22/24 Range/Units 03:06 WBC 7.8 (3.6-11.0) Thou/mm3 Hgb 14.5 (12.0-16.0) g/dL Hct 40.4 (36.0-46.0) % Plt Count 206 (140-440) Thou/mm3 BMP 04/22/24 04/22/24 03:06 04:47 Sodium 138 137 Potassium 4.1 4.0 Chloride 106 107 Carbon Dioxide 13.2 L* 13.9 L* BUN 17 16 Creatinine 0.8 0.7 Glucose 179 H 178 H Calcium 9.1 8.9 Cardiac Enzymes 04/22/24 04/22/24 Range/Units 03:06 04:47 Troponin I < 0.002 < 0.002 (0.0-0.045) ng/mL Liver Function 04/22/24 Range/Units 03:06 Total Bilirubin < 0.2 L (0.3-1.2) mg/dL AST 48 H (0-34) U/L ALT 59 H (10-49) U/L Alkaline Phosphatase 92 (46-116) U/L Albumin 4.5 (3.4-4.8) gm/dL Urine 04/22/24 Range/Units 03:08 Urine Color Lt-Yellow (Lt Yel-Yel) Urine Clarity Clear (Clear/Hazy) Urine pH 6.0 (5.0-7.0) Ur Specific [place] 1.021 (1.001-1.035) Urine Protein Negative (Neg - Trace) Urine Glucose (UA) 1+ A (Negative) Assessment and Plan Additional Assessment & Plan Additional Plan: # Chest pain # Pain abdomen epigastric right upper quadrant # Cholelithiasis Plan n.p.o. midnight tonight and up until that time she can have clear liquid diet Consent obtained for fiberoptic esophagogastroduodenoscopy with possible biopsy possible therapeutic intervention under intravenous moderate sedation HIDA scan without pharmaceutical Will follow the patient Thank you very much for the opportunity to participate in care of this patient Other medical problems include # Diabetes mellitus type 2
[2024-04-22] MEDS: PANTOPRAZOLE INJ 40 MG VIAL IVP ×2 (16:04→20:14)
--- NOTE | 2024-04-22 16:13 | PC.CC ---
Patient is a 58 year-old female who presents to the hospital for vomiting blood. Lorene LOVE made lbkg-ae-qwio contact with patient. ASW introduced self, role, and reason for visit. Patient appeared alert and oriented to self, location, and situation. Patient was pleasant and engaged in initial assessment. Patient confirmed information on demographics. Patient stated that should she be unable to make her own medical decisions she appoints her daughter, Maddie Gibson . Patient does not have a POLST, POA, or [facility] Directive. Patient is ambulated independently and completes her own ADLs. Patient does not use any DME at home. Patient receives primary care with Marita Ellington and uses [facility] for prescription medications. Upon discharge the patient plans to return home. auto specialty services manager to follow up with any discharge needs.
[2024-04-22] MEDS: SODIUM BICARB INJ 8.4% 1 mEq/ML VIAL 50 ML 50 MEQ IV (16:42)
[2024-04-22 19:29] LABS: Albumin, Serum 4.2 gm/dL (3.4-4.8); Anion Gap 8 (7-16); BUN/Creatinine Ratio 16 Ratio (12-20); Blood Urea Nitrogen 11 mg/dL (9-23); Carbon Dioxide 27.8 mMol/L (20.0-31.0); Chloride 106 mMol/L (98-107); Creatinine (Component) 0.7 mg/dL (0.6-1.3); Estimated Creatinine Clearance 81.6 mL/min (>60); Glucose 102 mg/dL (74-106); Osmolality,Calculated 282 (275-295); Phosphorous 3.7 mg/dL (2.4-5.1); Potassium 3.7 mMol/L (3.4-5.1); Sodium 142 mMol/L (136-145); eGFR > 60 See Note
[2024-04-23] VITALS (23 sets, daily range): BP systolic 109–154; BP diastolic 60–88; PULSE 71–92; RESP 10–96; TEMP 36.1–36.9; O2SAT 90–98; BMI 28.1
[2024-04-23 05:26] LABS: Basophils # (Auto) 0.1 Thou/mm3 (0.0-0.2); Basophils % (Auto) 1 % (0-2.5); Eosinophils # (Auto) 0.3 Thou/mm3 (0.0-0.5); Eosinophils % (Auto) 3 % (0-10); Hematocrit 41.5 % (36.0-46.0); Hemoglobin 14.1 g/dL (12.0-16.0); Immature Granulocytes % (Auto) 0 % (0-0); Immature Granulocytes Auto 0.02 Thou/mm3 (0.00-0.00); Lymphocytes # (Auto) 2.9 Thou/mm3 (1.0-4.8); Lymphocytes % (Auto) 35 % (10-50); Mean Corpuscular Hemoglobin 30.4 pg (25.0-35.0); Mean Corpuscular Volume 89 fL (80-100); Monocytes # (Auto) 0.6 Thou/mm3 (0.0-0.8); Monocytes % (Auto) 7 % (0-12); Neutrophils # (Auto) 4.4 Thou/mm3 (1.8-7.7); Neutrophils % (Auto) 54 % (37-80); Nucleated Red Blood Cell % 0 /100 WBC (0); Platelet Count 227 Thou/mm3 (140-440); Red Blood Count 4.64 Miln/mm3 (4.00-5.20); White Blood Count 8.3 Thou/mm3 (3.6-11.0)
[2024-04-23] MEDS: ONDANSETRON INJ 2 MG/ML INJ 2 ML 4 MG IV ×2 (05:39→14:34)
[2024-04-23] MEDS: ACETAMINOPHEN SUPP 650 MG SUPP PR (05:40)
[2024-04-23 06:34] LABS: Albumin, Serum 4.4 gm/dL (3.4-4.8); Anion Gap 10 (7-16); BUN/Creatinine Ratio 13 Ratio (12-20); Blood Urea Nitrogen 10 mg/dL (9-23); Calcium 9.3 mg/dL (8.3-10.6); Calcium (Corrected) 9.3 mg/dL (8.5-10.1); Cardiac Risk Estimate 5.1 RATIO (3.7-5.6); Chloride 103 mMol/L (98-107); Cholesterol 213 mg/dL (132-200); Creatinine (Component) 0.8 mg/dL (0.6-1.3); Estimated Creatinine Clearance 71.2 mL/min (>60); Glucose 176 mg/dL (74-106); HDL Cholesterol 42 mg/dL (40-60); Magnesium 1.8 mg/dL (1.6-2.6); Osmolality,Calculated 278 (275-295); Phosphorous 3.6 mg/dL (2.4-5.1); Potassium 3.8 mMol/L (3.4-5.1); Sodium 138 mMol/L (136-145); Triglycerides 624 mg/dL (30-150); eGFR > 60 See Note
[2024-04-23 06:36] LABS: Glucose Estimated Average 169 mg/dL (80-131); Hemoglobin A1C 7.5 % Hgb (4.8-6.0)
--- NOTE | 2024-04-23 06:57 | PC.NURSE ---
pt taken for EGD at this time
--- NOTE | 2024-04-23 08:10 | SUR.PHASEI ---
0810: Pt. wakes to name then drifts back to sleep, vitals stable, breathing unlabored, no complaint of pain or nausea, no dressing in place, no active bleed noted, report received from Sarah MICHAELS.
--- NOTE | 2024-04-23 08:42 | PC.NURSE ---
received a report from the Surgery on Pt.Keeping her still NPO, Possible Hyda scan later today. Last vitals. 122/74bp, HR 78 and O2 92% RA . We will wait for pt. to come on floor.
--- NOTE | 2024-04-23 08:45 | SUR.PHASEI ---
0845: Pt. AAOx4, vitals stable, breathing unlabored, no complaint of pain, complaint of nausea, notified floor RN. No dressing in place, no active bleed noted, gave report to Ruchi MICHAELS. Family made aware of transfer to room.
[2024-04-23] MEDS: PANTOPRAZOLE INJ 40 MG VIAL IVP ×2 (09:28→20:24)
[2024-04-23] MEDS: ENOXAPARIN SOD INJ 40 MG/0.4 ML SYRINGE SC (09:28)
--- NOTE | 2024-04-23 10:47 | PD.SURCONS ---
HPI Consult details Consult date: 04/23/24 Reason for consultation narrative: Upper abdominal pain with nausea and vomiting History of present illness: 58-year-old female with history of gallstones has had intermittent abdominal pain. She started developing epigastric and upper abdominal pain radiating to her chest that woke her up in the middle of the night. She has had nausea and vomiting. Upon presentation to the emergency department her cardiac enzymes were unremarkable. CT scan of chest was unremarkable. She was noted to have gallstones and liver enzymes were unremarkable except slight elevation of transaminases. Review of Systems Constitutional Constitutional: Denies chills and Denies fever(s) Cardiovascular Cardiovascular: Denies chest pain Respiratory Respiratory: Denies cough Gastrointestinal Gastrointestinal: Reports abdominal pain, Reports nausea and Reports vomiting Genitourinary Genitourinary: Denies difficulty voiding Hematologic/Lymphatic Hematologic/Lymphatic: Denies easy bleeding and Denies easy bruising Past Medical History Surgical History OTHER SURGICAL HX: , partial thyroidectomy Social History SMOKING STATUS: Never smoker SUBSTANCE USE: does not use ALCOHOL: Never Meds Home Medications and Allergies Allergies Allergy/AdvReac Type Severity Reaction Status Date / Time prochlorperazine Allergy Severe HALLUCINATI Verified 03/25/21 19:08 ONS Sulfa (Sulfonamide Allergy Intermediate RASH Verified 03/25/21 19:08 Antibiotics) Exam Vital Signs Temp Pulse Resp BP Pulse Ox O2 Del Method O2 Flow Rate 97.6 F 76 15 112/65 94 L Room Air 2 04/23/24 08:51 04/23/24 08:51 04/23/24 08:51 04/23/24 08:51 04/23/24 08:51 04/23/24 08:51 04/23/24 08:25 Constitutional Constitutional: no acute distress Routine HEENT Exam Eye: Present PERRL (Anicteric sclera) Routine Abdominal Exam Abdominal: Present soft, normoactive bowel sounds and tenderness (Right upper quadrant tenderness to palpation with guarding, no rebound tenderness or peritonitis at this time); Absent distended Assessment & Plan Problem List (1) Biliary calculus with cholecystitis: Status: Acute Plan Plan for laparoscopic possible open cholecystectomy. Risks include but not limited to infection, bleeding, injury to bowel, liver, stomach, bile duct, retained stone, bile leak, abdominal sepsis and or abdominal abscess, need for further procedure and or operation discussed with the patient. Benefits alternatives explained to her, all her questions answered, she agreed and consented to proceed with the operation. I wish to extend my most sincere thanks to Dr. Desai for consulting me and allowing me to evaluate and participate in care of this patient. (1) Biliary calculus with cholecystitis Qualifiers: Biliary obstruction: without biliary obstruction Cholecystitis acuity: chronic Cholelithiasis location: gallbladder Qualified Code(s): K80.10 - Calculus of gallbladder with chronic cholecystitis without obstruction
--- NOTE | 2024-04-23 10:52 | CHAP ---
Patient was visited by a Spiritual Care Volunteer on 04/23/2024 between 0900 and 1000 and received comfort, encouragement, and/or prayer.
--- NOTE | 2024-04-23 10:52 | PD.RESPRO ---
Documentation for date of: 04/23/24 Subjective Subjective Interval history: 04/23/2024: Pt examined at beside today. No acute overnight events. Pt is s/p EGD. She is to get HIDA scan today to evaluate GB stones. BUN/Cr 10 and 0.8, potassium 3.8 and Mg 1.8, wbc 8.3, and Hgb 14. Total CE 213 and TG 624. No other complaints at this time. Exam Vital Signs Temp Pulse Resp BP Pulse Ox O2 Del Method O2 Flow Rate 97.6 F 76 15 112/65 94 L Room Air 2 04/23/24 08:51 04/23/24 08:51 04/23/24 08:51 04/23/24 08:51 04/23/24 08:51 04/23/24 08:51 04/23/24 08:25 Narrative Exam Physical exam is limited at this time as pt is sleeping and is s/p EGD General: Sleeping HEENT: Moist mucous membranes, conjunctiva clear, EOMI, PERRLA, Cardiovascular: S1, S2, radial pulses +2 bilat, RRR Pulmonary: CTAB bilat no cough, no wheezing GI: No tenderness to light or deep palpitation, no guarding, rigidity, rebound tenderness or distension Extremities: No presence of trace or pitting edema in lower extremities bilaterally, dorsalis pedis pulses +2 bilaterally Neuro: Sleeping at this time Objective Labs 04/24/24 05:10 04/24/24 05:10 Labs: Laboratory Results - last 24 hr 04/22/24 04/22/24 04/23/24 04:47 18:51 04:40 WBC 8.3 RBC 4.64 Hgb 14.1 Hct 41.5 MCV 89 MCH 30.4 MCHC 34.0 RDW Std Deviation 42.0 Plt Count 227 Neut % (Auto) 54 Lymph % (Auto) 35 Towner % (Auto) 7 Eos % (Auto) 3 Baso % (Auto) 1 Neut # (Auto) 4.4 Lymph # (Auto) 2.9 Towner # (Auto) 0.6 Eos # (Auto) 0.3 Baso # (Auto) 0.1 Immature Gran # (Auto) 0.02 H Absolute Nucleated RBC 0.00 Immature Gran % 0 Nucleated RBC % 0 Sodium 142 138 Potassium 3.7 3.8 Chloride 106 103 Carbon Dioxide 27.8 25.0 Anion Gap 8 10 BUN 11 10 Creatinine 0.7 0.8 Estim Creat Clear Calc 81.6 71.2 eGFR > 60 > 60 BUN/Creatinine Ratio 16 13 Glucose [address] Glu mg/dL 169 H Hemoglobin A1c 7.5 H Calculated Osmolality 282 278 Calcium 9.0 9.3 Corrected Calcium 9.0 9.3 Phosphorus 3.0 3.7 3.6 Magnesium 1.8 Albumin 4.2 4.4 Triglycerides 624 H Cholesterol 213 H LDL Cholesterol, Calc TNP HDL Cholesterol 42 Cholesterol/HDL Ratio 5.1 TSH 1.10 Quality Measures Quality Measures none Assessment & Plan Assessment Current Active Medications: Generic Name Dose Route Start Last Admin Trade Name Freq PRN Reason Stop Dose Admin Acetaminophen 1,000 mg 04/22/24 14:05 Acetaminophen 500 Mg Tablet PO 05/22/24 14:04 Q6H PRN Fever >100 or pain 1-3 Atorvastatin Calcium 40 mg 04/23/24 21:00 Atorvastatin Calcium 20 Mg Tablet PO 05/23/24 20:59 HS LIZZY Dextrose 25 ml 04/23/24 10:44 Dextrose 50%-Water Inj 50 Ml Syringe IV 05/23/24 10:43 Q15MIN PRN BG 50-70 responsive npo pt Dextrose 50 ml 04/23/24 10:44 Dextrose 50%-Water Inj 50 Ml Syringe IV 05/23/24 10:43 Q15MIN PRN BG <50 OR BG <70 & pt unresponsive Enoxaparin Sodium 40 mg 04/23/24 09:00 04/23/24 09:28 Enoxaparin Sod Inj 40 Mg/0.4 Ml Syringe SC 05/07/24 08:59 40 mg QDAY LIZZY Administration Glucagon 1 mg 04/23/24 10:44 Glucagon Inj 1 Mg Vial IM Q15MIN PRN BG <70, and no IV access Sodium Chloride 1,000 mls @ 75 mls/hr 04/23/24 10:42 Ns IV 05/23/24 10:41 .[id number] [facility] Insulin Human Lispro 0 unit 04/23/24 11:30 Insulin Lispro (Admelog) 1 Unit/0.01 Ml Unit SC 05/23/24 11:29 AC [facility] Protocol Morphine Sulfate 2 mg 04/22/24 16:20 Morphine Sulf Inj 10 Mg/Ml Vial IVP 04/27/24 16:17 Q4H PRN PAIN SCALE 4-10(Mod-Sev Ondansetron HCl 4 mg 04/22/24 14:05 04/23/24 05:39 Ondansetron Inj 2 Mg/Ml Inj 2 Ml IV 05/22/24 14:04 4 mg Q6H PRN Administration NAUSEA OR VOMITING Protocol Pantoprazole Sodium 40 mg 04/22/24 21:00 04/23/24 09:28 Pantoprazole Inj 40 Mg Vial IVP 05/22/24 20:59 40 mg BID LIZZY Administration Pyridoxine HCl 50 mg 04/23/24 10:45 Pyridoxine 50 Mg Tablet PO 05/23/24 10:44 QDAY LIZZY Plan Assessment 58 y/o female with PMHx of jas-mredqoa-ilctqqxau type 2 diabetes who is currently admitted for evaluation of gastritis, and episodes of hematemesis, and NVD #Mild to moderate esophagitis #Gastritis #R/o Nancy's esophagus #Hx of Cholelithiasis #History of GERD #Previous episodes of hematemesis #Poor oral intake DDx: Gastritis, IBD, IBS, pancreatitis, gastroenteritis, esophageal varices Patient does have history of GERD so it is likely that patient may also have gastritis Patient may have a component of IBD, or IBS, however patient is older and is unlikely for this patient to have this, however we would need endoscopy and colonoscopy to rule out these conditions Pancreatitis was a working differential for patient as patient had some pain in the back, however lipase was minimally elevated and patient did not have white count so this is unlikely at this time Patient could have also have ate something that could be irritating stomach Esophageal varices very unlikely as patient has never been a heavy drinker EGD shows esophagitis and gastritis, biopsies taken, need to see if pt has nancy's esophagus Considering symptoms and hx of GERD, Nancy's could be possible, however, pt will need to follow up w/ Dr. Desai for biopsy results Will need to see if GB stones are contributing to patient's symptoms, may need cholecystectomy Plan: ? GI consulted, appreciate recs ? Zofran ? Pain control as needed, will avoid NSAIDs at this time ? Protonix 40 mg IV BID ? Follow up HIDA Scan ? Low fat diet after HIDA scan ? General surgery consulted #Metabolic acidosis, resovled Working diagnosis at this time is chronic diarrhea leading to GI losses for low bicarbonate Patient does confirm a history of having diarrhea up to 3 episodes consistently No other electrolyte derangements at this time Anion gap 16 We will keep an eye trend with CMP at this time There has been no VBG or ABG ordered and patient is on room air at this time Beta hydroxybutyrate 0.2 when last checked Plan: ? Trend with CMP #Hyperlipidemia #Hypertriglyceridemia Total Cholesterol 213 Triglycerides 624 Will start with statin, B6 and fluids, will hold off on fibrates at this time Plan: ? Lipitor 40 mg HS ? Maintenance 75 cc/hr NS ? Pyridoxine 50 mg qday #History of lzp-ddiznnh-sugxzifqw type 2 diabetes A1c of 7 Plan: ? SSI ? Glucose checks every 6 hours ? Hypoglycemic protocol in place #Health Maintenance Disposition: Med telemetry DVT prophylaxis: Lovenox GI prophylaxis: Protonix 40 mg IV BID Diet: Low fat diet after HIDA CODE STATUS: Full Patient seen and care discussed with my senior resident, Dr. Gandara , and my attending physician, Dr. Chloe Calhoun, PGY-1 Attending Provider Attestation/Addendum I reviewed labs, imaging, EKG, home medications and prior available records. Face to face evaluation was performed by me. I have personally examined the patient and discussed assessment and plan with the IM team. I reviewed the resident note and agree with the plan with exceptions as below. 58-year-old female who presented with nausea, vomiting, and epigastric pain that radiates to her chest. She was admitted for GI bleed workup Epigastric pain Chest pain at rest Intractable nausea and vomiting Hematemesis Possible upper GI bleed Hyperlipidemia IV hydration Zofran as needed for nausea Management of pain as needed Monitor electrolytes Monitor H&H Consulted GI for EGD N.p.o. prior to EGD: EGD showed gastritis and esophagitis. Continue PPI Triglycerides level is very high at 624. Total cholesterol is more than 200. Started atorvastatin 40 mg nightly. Ordered HIDA scan. Discussed with GI: Will plan for cholecystectomy. Consulted general surgery: Plan for cholecystectomy on 04/23
[2024-04-23] MEDS: SODIUM CHLORIDE 0.9% 1000 ML 1,000 ML 75 ML IV (11:45)
--- NOTE | 2024-04-23 13:52 | ESOP_ITS ---
Date of Procedure 04/23/24 Pre Op Diagnosis Symptomatic cholelithiasis Post Op Diagnosis Cholelithiasis with cholecystitis Procedure Laparoscopic cholecystectomy Findings Moderately distended gallbladder with gallstones and chronic cholecystitis Procedure Description Patient was brought into the operating room in supine position. After adm inistration of general endotracheal anesthesia abdomen was prepped and draped in standard surgical manner. A Veress needle was inserted through the umbilicus and pneumoperitoneum was obtained up to 15 mmHg. The Veress needle was then removed, a 5 mm infraumbilical incision was made and the 5mm trocar was inserted. Laparoscopic camera was placed. Under direct visualization a laparoscopic camera a 10 mm trocar was placed in subxiphoid and two 5 mm trocars placed in right upper quadrant. The gallbladder was identified and was noted to be moderately distended with multiple gallstones and chronic cholecystitis. It was retracted cephalad and laterally. Dissection started near the infundibulum of gallbladder where cystic duct and gallbladder junction clearly identified. The cystic duct was circumferentially dissected off the peritoneum and surrounding inflammatory tissue. The critical view of safety was clearly demonstrated. Cystic duct was then divided between 2 endoclips proximally and one distally. The cystic artery was similarly dissected and divided. The gallbladder was then from the liver bed using electrocautery. The gallbladder was then placed inside an Endo Catch and removed from the abdomen utilizing subxiphoid trocar site. The area was copiously and thoroughly washed and irrigated, all the fluid was suctioned and the suction fluid returned clear. Hemostasis achieved using electrocautery. Endoclips noted be in place and intact without any bleeding or any leakage. Hemostasis was adequate and satisfactory. The subxiphoid trocar sites fascial defect was closed with 0 Vicryl using Endo Closure device. Instruments and trocars removed, pneumoperitoneum was evacuated and the incisions closed with 4-0 Monocryl in subcuticular fashion. Instrument needle and sponge counts were all reported to be correct X2. Patient tolerated the procedure well, was extubated, breathing spontaneously and without difficulty and was transferred to postanesthesia care in stable condition. Anesthesia GETA and local Pathology / specimen Other (Gallbladder and contents) Estimated Blood Loss 10 Condition Stable Disposition PACU Surgeon Emily Solis MD Surgical Staff Operation Date: 04/23/24 14:45 Case Staff Anesthesiologist: Richar Benavides RN First Assistant: Marcela Terrazas
--- NOTE | 2024-04-23 14:02 | SUR.PHASEI ---
pt received from OR in recovery bay 5. pt asleep but responds to voice, breathing unlabored on oxymassk 8l. v/s stable. pt dressing to abd dermabond x4 cdi. report received from Dr. Benavides and Jaylen MICHAELS.
[2024-04-23] MEDS: METOCLOPRAMIDE INJ 5 MG/ML VIAL 2 ML 10 MG IVP (14:47)
--- NOTE | 2024-04-23 15:10 | SUR.PHASEI ---
pt asleep but responds to voice, breathing unlabored on 2l nc. v/s stable. pt dressing to abd dermabond x4 cdi. report called to Ruchi MICHAELS. pt will be transferred to floor at this time.
[2024-04-23] MEDS: ACETAMINOPHEN IVPB 1,000 MG/100 ML VIAL 250 MG IV ×2 (15:50→23:52)
--- NOTE | 2024-04-23 16:05 | PC.NURSE ---
received pt. on the floor on [facility] on 2 l O2 saturating 94 pt. is sleepy complaining of pain. has dermabond x4 site looks clean . will continue monitor pt.
[2024-04-23] MEDS: INSULIN LISPRO (AdmeLOG) 1 UNIT/0.01 ML UNIT SC (16:36)
[2024-04-23] MEDS: MORPHINE SULF INJ 10 MG/ML VIAL 2 MG IVP ×2 (17:32→22:12)
[2024-04-23] MEDS: ATORVASTATIN CALCIUM 20 MG TABLET 40 MG PO (20:22)
[2024-04-23] MEDS: DOCUSATE SOD 100 MG CAPSULE PO (20:23)
[2024-04-24] VITALS: BP 118/73; PULSE 86; PULSE 93; RESP 17; TEMP 36.3; O2SAT 94
[2024-04-24 04:00] VITALS: BP 123/69; PULSE 78; PULSE 84; RESP 17; TEMP 36.6; O2SAT 95
[2024-04-24] MEDS: SODIUM CHLORIDE 0.9% 1000 ML 1,000 ML 75 ML IV (05:17)
[2024-04-24 06:15] LABS: Basophils % (Auto) 0 % (0-2.5); Eosinophils % (Auto) 0 % (0-10); Immature Granulocytes % (Auto) 0 % (0-0); Immature Granulocytes Auto 0.03 Thou/mm3 (0.00-0.00); Lymphocytes # (Auto) 1.4 Thou/mm3 (1.0-4.8); Lymphocytes % (Auto) 14 % (10-50); Mean Corpuscular HGB Conc 34.2 g/dl (31.0-37.0); Mean Corpuscular Hemoglobin 30.7 pg (25.0-35.0); Mean Corpuscular Volume 90 fL (80-100); Monocytes # (Auto) 0.7 Thou/mm3 (0.0-0.8); Monocytes % (Auto) 7 % (0-12); Neutrophils # (Auto) 7.8 Thou/mm3 (1.8-7.7); Neutrophils % (Auto) 79 % (37-80); Nucleated Red Blood Cell % 0 /100 WBC (0); Platelet Count 208 Thou/mm3 (140-440); RDW Standard Deviation 41.8 fL (36.4-46.3); Red Blood Count 4.24 Miln/mm3 (4.00-5.20); White Blood Count 9.9 Thou/mm3 (3.6-11.0)
[2024-04-24] MEDS: ACETAMINOPHEN IVPB 1,000 MG/100 ML VIAL 250 MG IV ×2 (06:18→10:59)
[2024-04-24 06:21] VITALS: PULSE 77; RESP 19; RESP 95
[2024-04-24 06:39] LABS: Albumin, Serum 4.1 gm/dL (3.4-4.8); Anion Gap 7 (7-16); BUN/Creatinine Ratio 12 Ratio (12-20); Blood Urea Nitrogen 11 mg/dL (9-23); Calcium 9.2 mg/dL (8.3-10.6); Calcium (Corrected) 9.2 mg/dL (8.5-10.1); Carbon Dioxide 24.6 mMol/L (20.0-31.0); Chloride 109 mMol/L (98-107); Creatinine (Component) 0.9 mg/dL (0.6-1.3); Estimated Creatinine Clearance 61.8 mL/min (>60); Glucose 175 mg/dL (74-106); Magnesium 1.9 mg/dL (1.6-2.6); Osmolality,Calculated 284 (275-295); Potassium 4.2 mMol/L (3.4-5.1); Sodium 141 mMol/L (136-145); eGFR > 60 See Note
[2024-04-24 08:00] VITALS: BP 126/59; PULSE 72; PULSE 78; RESP 16; TEMP 36.9; O2SAT 96
[2024-04-24] MEDS: INSULIN LISPRO (AdmeLOG) 1 UNIT/0.01 ML UNIT SC (08:25)
[2024-04-24] MEDS: PANTOPRAZOLE INJ 40 MG VIAL IVP (10:43)
[2024-04-24] MEDS: DOCUSATE SOD 100 MG CAPSULE PO (10:45)
[2024-04-24] MEDS: PYRIDOXINE 50 MG TABLET PO (10:45)
--- NOTE | 2024-04-24 11:27 | ESPR_ITS ---
Documentation for date of: 04/24/24 Subjective Subjective Narrative: Patient is seen and examined. Pain is improving. She is tolerating diet without nausea or vomiting Exam Vital Signs Temp Pulse Resp BP Pulse Ox O2 Del Method O2 Flow Rate 98.5 F 78 16 126/59 L 96 Room Air 2 04/24/24 08:00 04/24/24 08:00 04/24/24 08:00 04/24/24 08:00 04/24/24 08:00 04/24/24 08:00 04/23/24 14:50 Constitutional Constitutional: no acute distress Routine Abdominal Exam Abdominal: Present soft, normoactive bowel sounds and tenderness (Mild jose- incisional tenderness. There is minimal bruising around the epigastric incision, otherwise incisions are clean, dry and intact); Absent distended Assessment & Plan Assessment Additional comments: Postop day #1 status post laparoscopic cholecystectomy Plan May discharge home Procedures Procedures Laparoscopic cholecystectomy
--- NOTE | 2024-04-24 11:28 | ESDS_ITS ---
Planned Discharge Date 04/24/24 DS: Providers Provider Date of admission: 04/22/24 12:07 Primary care physician: Marita Ellington([facility])HONG Admitting Provider: Jan Corona MD Attending Provider on Admission: Jan Corona MD Consults: 04/22/24 12:08 Consult to Gastroenterology Stat Comment: Consulting Provider: Americo Desai 04/23/24 09:11 Consult to General Surgery Urgent Comment: Cholelithiasis pain abdomen Consulting Provider: Emily Solis 04/24/24 08:50 Referral Physical Therapy Routine Comment: Physician Instructions: Attending Provider on DC: Jan Corona MD Discharging Provider: Jan Corona MD DS: Diagnosis Problem List Completed Was Problem List Reviewed/Reconciled?: Yes Hospital Course Hospital Course Hospital course: 58 y/o female with PMHx of DM2 who was admitted to [facility] for symptomatic cholelithiasis and chronic cholecystitis on 04/22/2024 in which pt had cholecystectomy and EGD. Pt initially was being evaluated for chest pain, but pain was likely related to worsening of cholecystitis and gastritis symptoms. She did endorse that she was due to get colonoscopy by Dr. Desai on April 30. Pt arrived to the ED with a temperature of 98.6, heart rate 78, respiratory rate 17, blood pressure 151/95, saturating 96% room air. Patient was worked up and was found to have white count 7.8, hemoglobin of 14.5, sodium of 130, potassium 4.1, chloride of 106, bicarb 13, BUN/creatinine 17 and 0.8 respectively, glucose 179, anion gap of 19, magnesium 1.8, lipase 56, lactic acid 1.9, troponin negative x 2. EKG showed normal sinus rhythm possible left axis deviation with a rate of 80. Chest x-ray was unremarkable. Chest abdomen pelvis CT was done and showed cholelithiasis, some left-sided hydronephrosis. Patient was given Zofran x 1 morphine 2 mg x 1, 1 L bolus. Medicine was consulted and patient was admitted to floors. While on the floors, GI, Dr. Desai, was consulted who recommended patient to undergo EGD. Pt underwent EGD which showed mild to moderate esophagitis, gastritis and to rule out Rashid's esophagus with biopsies taken in which patient needs to follow up on. Dr. Solis, general surgeon, was consulted and had recommended cholecystectomy. Pt under went cholecystectomy and tolerated procedure and findings included chronic cholecystitis. Pt was then cleared for discharge as pt was ambulating, and tolerating oral diet well. Recommended to follow up with PCP and take medicines as prescribed. If you don't have a PCP, please follow up with me Dr. Calhoun, or any one of my colleagues (My schedule will be ) [facility], [address] [place] [address] [place] [id number]. Otherwise, follow up with your PCP within one week Follow up with Dr. Desai, GI, within two weeks to follow up on results Follow up w/general surgeon, Dr. Solis, within two weeks Take medicines as prescribed Avoid NSAIDs (Motrin/Ibuprofen, Naproxen/Aleeve) as you have gastritis Take Tylenol and apply lidocaine patch for pain Take your pantoprazole 40 mg twice a day, and follow up with Dr. Desai to medicine adjustment Take 5 days of antibiotics with food please, Ciprofloxacin 500 mg twice a day Return to ER if symptoms worsen or return #Mild to moderate esophagitis #Gastritis #R/o Rashid's esophagus #Hx of Cholelithiasis #History of GERD #Previous episodes of hematemesis #Poor oral intake #Metabolic acidosis, resovled #Hyperlipidemia #Hypertriglyceridemia #History of gyv-lmmjrvb-dkombqqct type 2 diabetes Patient seen and care discussed with my senior resident, Dr. Johnson, and my attending physician, Dr. Chloe Calhoun, PGY-1 Time Spent with Patient Time attestation: Total time spent providing and/or coordinating discharge services: Time spent: Greater than 30 minutes Exam Vital Signs Temp Pulse Resp BP Pulse Ox O2 Del Method O2 Flow Rate 98.5 F 78 16 126/59 L 96 Room Air 2 04/24/24 08:00 04/24/24 08:00 04/24/24 08:00 04/24/24 08:00 04/24/24 08:00 04/24/24 08:00 04/23/24 14:50 Narrative Exam General: AAOx3, NAD HEENT: Moist mucous membranes, conjunctiva clear, EOMI, PERRLA, Cardiovascular: S1, S2, radial pulses +2 bilat, RRR Pulmonary: CTAB bilat no cough, no wheezing GI: Incisions appear to be dry and clean with minimal erythema, no guarding, rigidity, rebound tenderness or distension Extremities: No presence of trace or pitting edema in lower extremities bilaterally, dorsalis pedis pulses +2 bilaterally Neuro: AAOx3, no focal or motor deficits at this time Psych: Cooperative Discharge Plan Plan Patient Disposition: HOME (Self Care) Disposition Comment: Stable at sign out. Patient condition on transfer: Stable Care Plan Goals: If you don't have a PCP, please follow up with me Dr. Calhoun, or any one of my colleagues (My schedule will be AM) [facility], [address] [place] [address] [place] [id number]. Otherwise, follow up with your PCP within one week Follow up with Dr. Desai, GI, within two weeks to follow up on results Follow up w/general surgeon, Dr. Solis, within two weeks Take medicines as prescribed Avoid NSAIDs (Motrin/Ibuprofen, Naproxen/Aleeve) as you have gastritis Take Tylenol and apply lidocaine patch for pain Take your pantoprazole 40 mg twice a day, and follow up with Dr. Desai to medicine adjustment Take 5 days of antibiotics with food please, Ciprofloxacin 500 mg twice a day Return to ER if symptoms worsen or return Prescriptions/Referrals Prescriptions/Med Rec: New metoclopramide HCl 5 mg tablet 5 mg PO QDAY PRN (Reason: nausea and constipation) Qty: 20 0RF ciprofloxacin HCl 500 mg tablet 500 mg PO BID 5 Days Qty: 10 0RF pantoprazole 40 mg tablet,delayed release (DR/EC) 40 mg PO BID 30 Days Qty: 60 0RF pyridoxine (vitamin B6) 10 mg tablet 10 mg PO QDAY 30 Days Qty: 30 0RF atorvastatin [Lipitor] 40 mg tablet 40 mg PO QDAY 30 Days Qty: 30 0RF docusate sodium [Colace] 100 mg capsule 100 mg PO BID Qty: 30 0RF bisacodyl 5 mg tablet 5 mg PO QDAY PRN (Reason: constipation) Qty: 20 0RF lidocaine 5 % adhesive patch,medicated 1 patch topical QDAY 10 Days Qty: 15 0RF Rx Instructions: leave on most painful area for up to 12 hrs Continued albuterol sulfate 90 mcg/actuation HFA aerosol inhaler 2 puff inhalation QID PRN (Reason: shortness of breath or wheezing) Qty: 8.5 0RF Discontinued ondansetron 4 mg tablet,disintegrating 4 mg PO Q6H PRN (Reason: nausea and vomiting) Qty: 10 0RF azithromycin 250 mg tablet See Rx Instructions .ROUTE .COMPLEX Qty: 6 0RF Rx Instructions: For 250 mg dose pack: take 500 mg today (day 1), then 250 mg for 4 days (days 2-5) Do not take with previous zofran/odansentron prescription ondansetron 4 mg tablet,disintegrating 4 mg PO Q6H PRN (Reason: nausea and vomiting) Qty: 10 0RF No Action hydrocodone-acetaminophen 5-300 mg tablet 1 tab PO Q6H MDD 3 PRN (Reason: pain) Qty: 10 0RF Referrals: Shanell)Marita PA-C [Primary Care Provider] - Patient/Caregiver Discharge Instructions Discharge Activity: activity as tolerated Education Materials: Cholecystectomy, Preventing Surgical Site Infections Print Language: Irish Activity Restrictions/Additional Instructions: May shower in 24 hours. Avoid lifting, straining, pulling or pushing for 4 weeks. May take over the counter laxatives if no bowel movement in 2 days. Follow up with Dr. Solis in 2 weeks, call [phone] for an appointment. Stand Alone Forms: Hannah Award Info., Patient Portal Info Letter, Work/Release Restrictions Discharge Order Discharge Orders: Discharge (Routine); Ordered 04/24/24 Ordered By: Rufino Mckinney Quality Discharge Quality Measures VTE prophylaxis (SCDs) Attestestation MD Attestation I reviewed labs, imaging, EKG, home medications and prior available records. Face to face evaluation was performed by me. I have personally examined the patient and discussed assessment and plan with the IM team. I reviewed the resident note and agree with the plan with exceptions as below. 58-year-old female who presented with nausea, vomiting, and epigastric pain that radiates to her chest. She was admitted for GI bleed workup Epigastric pain Chest pain at rest Intractable nausea and vomiting Hematemesis Possible upper GI bleed Hyperlipidemia IV hydration Zofran as needed for nausea Management of pain as needed Monitor electrolytes Monitor H&H Consulted GI for EGD N.p.o. prior to EGD: EGD showed gastritis and esophagitis. Continue PPI Triglycerides level is very high at 624. Total cholesterol is more than 200. Started atorvastatin 40 mg nightly. Ordered HIDA scan. Discussed with GI: Will plan for cholecystectomy. Consulted general surgery: Status post cholecystectomy on 04/23. She tolerated her diet and had a bowel movement. Okay to discharge from surgery standpoint. Outpatient follow-up with general surgery in 2 weeks Time spent is 40 minutes. More than 50% of the time was spent on patient education and coordination of care.
--- NOTE | 2024-04-24 11:35 | ESPR_ITS ---
Documentation for date of: 04/24/24 Subjective Subjective Interval history: Patient evaluated patient status post laparoscopic cholecystectomy Chest pain abdominal pain better Exam Vital Signs Temp Pulse Resp BP Pulse Ox O2 Del Method O2 Flow Rate 98.5 F 78 16 126/59 L 96 Room Air 2 04/24/24 08:00 04/24/24 08:00 04/24/24 08:00 04/24/24 08:00 04/24/24 08:00 04/24/24 08:00 04/23/24 14:50 Objective Labs 04/24/24 05:10 04/24/24 05:10 Labs: Laboratory Results - last 24 hr 04/24/24 05:10 WBC 9.9 RBC 4.24 Hgb 13.0 Hct 38.0 MCV 90 MCH 30.7 MCHC 34.2 RDW Std Deviation 41.8 Plt Count 208 Neut % (Auto) 79 Lymph % (Auto) 14 Woodruff % (Auto) 7 Eos % (Auto) 0 Baso % (Auto) 0 Neut # (Auto) 7.8 H Lymph # (Auto) 1.4 Woodruff # (Auto) 0.7 Eos # (Auto) 0.0 Baso # (Auto) 0.0 Immature Gran # (Auto) 0.03 H Absolute Nucleated RBC 0.00 Immature Gran % 0 Nucleated RBC % 0 Sodium 141 Potassium 4.2 Chloride 109 H Carbon Dioxide 24.6 Anion Gap 7 BUN 11 Creatinine 0.9 Estim Creat Clear Calc 61.8 eGFR > 60 BUN/Creatinine Ratio 12 Glucose 175 H Calculated Osmolality 284 Calcium 9.2 Corrected Calcium 9.2 Phosphorus 4.0 Magnesium 1.9 Albumin 4.1 Impressions Impression: # Chest pain # Abdominal pain Symptomatic cholecystitis status post lap inez Advance diet as tolerated Assessment & Plan A&P Narrative # Chest pain # Pain abdomen epigastric right upper quadrant # Cholelithiasis Plan n.p.o. midnight tonight and up until that time she can have clear liquid diet Consent obtained for fiberoptic esophagogastroduodenoscopy with possible biopsy possible therapeutic intervention under intravenous moderate sedation HIDA scan without pharmaceutical Will follow the patient Thank you very much for the opportunity to participate in care of this patient Other medical problems include # Diabetes mellitus type 2 Time Spent With Patient Time: Total time spent is greater than 50% in coordination of care (as documented) at patient's floor/unit and/or counseling patient:
[2024-04-24 12:00] VITALS: BP 128/67; PULSE 79; PULSE 84; RESP 16; TEMP 36.6; O2SAT 95
[2024-04-24 16:00] VITALS: BP 129/81; PULSE 76; RESP 17; TEMP 36.1; O2SAT 97
[2024-04-30 06:55] LABS: Helicobacter pylori Ag, Stool* NOT DETECTED (NOT DETECTED)
== END 2024-04-24 16:07 | disposition home or self-care (01) ==
LOC: SERX 07:20 → SERHOLD 13:30 → S3SX 04-23 06:15 → SERHOLD 04-24 10:39
PROVIDERS: Emergency Medicine; Specialist; Surgery; Admitting Provider Student in an Organized Health Care Education/Training Program; Emergency Provider Emergency Medicine; PCP Nurse Practitioner Family; Visit Provider Student in an Organized Health Care Education/Training Program
PROC: (CPT 43239; principal; 2024-04-23 07:30)
PROC: 0FT44ZZ Resection of Gallbladder, Percutaneous Endoscopic Approach (ICD-10-PCS; CPT 47562; principal; 2024-04-23 14:30)
DX: K80.10 Calculus of gallbladder with chronic cholecystitis without obstruction (principal); E11.9 Type 2 diabetes mellitus without complications; E78.00 Pure hypercholesterolemia, unspecified; E78.1 Pure hyperglyceridemia; E86.0 Dehydration; E87.20 Acidosis, unspecified; K21.00 Gastro-esophageal reflux disease with esophagitis, without bleeding; K29.70 Gastritis, unspecified, without bleeding; Z01.810 Encounter for preprocedural cardiovascular examination; K29.50 Unspecified chronic gastritis without bleeding
CPT/HCPCS: 47562; 43239; 36415; 71046; 71260; 74177; 80048; 80053; 80061; 80069; 80307; 80320; 81001; 82010; 83036; 83605; 83690; 83735; 83880; 84100; 84443; 84484; 85025; 85610; 85730; 87338; 90839; 93005; 93225; 96361; 96365; 96372; 96374; 96375; 97161; 99285; A4217; A4649; G0378; J0131; J0694; J1100; J1200; J1650; J1815; J1885; J2250; J2270; J2371; J2405; J2470; J2704; J2765; J3010; J3490; J7030; Q9967; A9270; G0480

== ENCOUNTER → 2024-05-01 | Outpatient (CLI) | payer OTHER, SELFPAY ==
--- NOTE | 2024-05-01 14:45 | XR_ITS ---
Examination: Thyroid sonography complete TECHNIQUE: Grayscale sonographic images thyroid lobes with color flow analysis Exam date and time: May 01, 2024 1437 hours INDICATIONS: History partial thyroidectomy 1990, ultrasound the neck February 13, 2024 multiple thyroid nodules, difficulty swallowing 2 months FINDINGS: Right thyroid 4.4 x 2.2 x 2.2 cm Multiple thyroid nodules including upper pole 6 x 5 mm, midpole 8 x 7 mm, lower pole 13 x 8 mm Left thyroid 3.8 x 1.1 x 1.9 cm Multiple thyroid nodules including upper pole 17 x 12 mm midpole 11 x 7 mm IMPRESSION: Multiple bilateral thyroid nodules, consider ultrasound-guided fine-needle aspiration of the largest nodule in the left upper lobe, 17 x 8 x 12 mm
== END | disposition home or self-care (01) ==
PROVIDERS: PCP Nurse Practitioner Family; Referring Provider Nurse Practitioner Family; Visit Provider Nurse Practitioner Family
DX: E04.2 Nontoxic multinodular goiter (principal)
CPT/HCPCS: 76536

== ENCOUNTER 2024-05-15 20:00 | Emergency (ER) | payer OTHER, SELFPAY ==
[2024-05-15 20:03] VITALS: BMI 26.9
[2024-05-15 20:17] VITALS: BP 133/68; PULSE 111; RESP 18; TEMP 37.2; O2SAT 95
--- NOTE | 2024-05-15 20:24 | XR_ITS ---
Examination: Duplex scan of the lower extremity, unilateral left Date and time of exam: May 15, 2024 2033 hrs. Indications: Palpable lump in the legs with pain and swelling today Technique: Duplex scan of the extremity veins using B-mode/grayscale imaging and Doppler spectral analysis and color flow Attention is directed to internal echogenicity, compression and augmentation involving these veins, color flow assessment, spectral analysis Findings: Major deep venous structures in the extremity demonstrate normal course and caliber. There is no evidence of deep vein thrombosis. Normal color flow and spectral analysis Impression: Negative for DVT..
--- NOTE | 2024-05-15 20:24 | EKG_ITS ---
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: : 1965 Requested By: Matthieu Ramos Order Number: [id number] Reading MD: Matthieu Ramos Measurements Intervals [place] Rate: 120 P: 38 NM: 128 QRS: -26 QRSD: 98 T: 69 QT: 333 QTc: 471 Interpretive Statements SINUS TACHYCARDIA MINIMAL VOLTAGE CRITERIA FOR LVH, CONSIDER NORMAL VARIANT [MEETS CRITERIA IN ONE OF: R(aVL), S(V1), R(V5), R(V5/V6)+S(V1)] POSSIBLE ANTERIOR MYOCARDIAL INFARCTION , OF INDETERMINATE AGE [30 ms Q WAVE IN V3/V4, OR R < 0.2 mV IN V4] Compared to ECG 04/22/2024 02:37:20 Myocardial infarct finding now present Sinus rhythm no longer present /store/S0/[id number]/ecg/[id number].pdf
--- NOTE | 2024-05-15 20:24 | XR_ITS ---
Examination: Duplex scan of the upper extremity, unilateral left Date and time of exam: May 15, 20242054 hrs. Indications: Left arm palpable lump in the biceps region with pain today Technique: Duplex scan of the extremity veins using B-mode/grayscale imaging and Doppler spectral analysis and color flow Attention is directed to internal echogenicity, compression and augmentation involving these veins, color flow assessment, spectral analysis Findings: Major deep venous structures in the extremity demonstrate normal course and caliber. There is no evidence of deep vein thrombosis. Normal color flow and spectral analysis Impression: Negative for DVT..
--- NOTE | 2024-05-15 20:24 | PD.EDRME ---
Rapid Medical Screening Exam RME Arrival date/time: 05/15/24 20:00 59F with history of DM and recent cholecystectomy presents to ED with several days of LLE and LUE pain including a lump in LUE. Patient also states she has a mild cough, but denies CP and SOB. Chief Complaint: Skin/Abscess/Foreign Body Vital signs: Vital Signs Temperature 98.9 F 05/15/24 20:17 Pulse Rate 111 H 05/15/24 20:17 Respiratory Rate 18 05/15/24 20:17 Blood Pressure 133/68 H 05/15/24 20:17 Pulse Oximetry (%) 95 05/15/24 20:17 Oxygen Delivery Method Room Air 05/15/24 20:17
--- NOTE | 2024-05-15 20:32 | XR_ITS ---
Examination: PA chest single view Technique: Upright PA chest single view Exam date and time: May 15, 2024 0111 hrs. Indications: Coughing beginning 2 days ago. Findings: Early pneumonia left base Normal heart size Right lung clear Impression: Early pneumonia left base
[2024-05-15 22:13] LABS: Basophils % (Auto) 1 % (0-2.5); Eosinophils # (Auto) 0.2 Thou/mm3 (0.0-0.5); Eosinophils % (Auto) 2 % (0-10); Hemoglobin 14.1 g/dL (12.0-16.0); Immature Granulocytes % (Auto) 0 % (0-0); Immature Granulocytes Auto 0.02 Thou/mm3 (0.00-0.00); Lymphocytes # (Auto) 0.8 Thou/mm3 (1.0-4.8); Lymphocytes % (Auto) 9 % (10-50); Mean Corpuscular HGB Conc 34.4 g/dl (31.0-37.0); Mean Corpuscular Hemoglobin 30.7 pg (25.0-35.0); Mean Corpuscular Volume 89 fL (80-100); Monocytes # (Auto) 0.5 Thou/mm3 (0.0-0.8); Monocytes % (Auto) 6 % (0-12); Neutrophils # (Auto) 7.2 Thou/mm3 (1.8-7.7); Neutrophils % (Auto) 83 % (37-80); Nucleated Red Blood Cell % 0 /100 WBC (0); Platelet Count 189 Thou/mm3 (140-440); RDW Standard Deviation 41.3 fL (36.4-46.3); White Blood Count 8.7 Thou/mm3 (3.6-11.0)
[2024-05-15 22:28] LABS: Alanine Aminotransferase 88 U/L (10-49); Albumin, Serum 5.1 gm/dL (3.4-4.8); Albumin/Globulin Ratio 2.2 (1.2-2.2); Alkaline Phosphatase 96 U/L (46-116); Anion Gap 8 (7-16); Aspartate Amino Transferase 63 U/L (0-34); BUN/Creatinine Ratio 13 Ratio (12-20); Bilirubin,Total 0.5 mg/dL (0.3-1.2); Blood Urea Nitrogen 12 mg/dL (9-23); Calcium 10.1 mg/dL (8.3-10.6); Calcium (Corrected) 10.1 mg/dL (8.5-10.1); Carbon Dioxide 28.4 mMol/L (20.0-31.0); Chloride 108 mMol/L (98-107); Creatinine (Component) 0.9 mg/dL (0.6-1.3); Estimated Creatinine Clearance 61.2 mL/min (>60); Globulin 2.3 gm/dL (2.3-3.5); Glucose 139 mg/dL (74-106); Osmolality,Calculated 288 (275-295); Potassium 4.2 mMol/L (3.4-5.1); Sodium 144 mMol/L (136-145); Total Protein 7.4 gm/dL (5.7-8.2); Troponin I < 0.002 ng/mL (0.0-0.045); eGFR > 60 See Note
[2024-05-15 22:30] LABS: B-Type Natriuretic Peptide < 20 pg/mL (0-100)
[2024-05-15 22:42] LABS: Partial Thromboplastin Time 24.5 Seconds (22.0-36.0); Prothrombin Time 10.6 Seconds (9.0-12.2)
[2024-05-15 23:42] VITALS: BP 126/83; PULSE 121; RESP 19; TEMP 37.1; O2SAT 95
--- NOTE | 2024-05-16 00:55 | PD.EDSKIN ---
ED Skin Abcess FB-RME/HPI General Chief complaint: Skin/Abscess/Foreign Body Stated complaint: LFT INNER THIGH LUMP,REDNESS,TENDERNESS,SX:04/23 Arrival date/time: 05/15/24 20:00 RME / HPI RME / HPI narrative: 05/15/24 20:00 59F with history of DM and recent cholecystectomy presents to ED with several days of LLE and LUE pain including a lump in LUE. Patient also states she has a mild cough, but denies CP and SOB. -------- Dr. Mckay?s Main ED Evaluation: Related Data Previous Rx's ?Medication ?Instructions ?Recorded hydrocodone 5 mg-acetaminophen 300 1 tab PO Q6H PRN pain #10 tabs 02/07/ mg tablet albuterol sulfate 90 mcg/actuation 2 puff inhalation QID PRN 03/25/21 aerosol inhaler shortness of breath or wheezing #8.5 grams atorvastatin 40 mg tablet (Lipitor) 40 mg PO QDAY 30 days #30 tabs 04/24/24 bisacodyl 5 mg tablet 5 mg PO QDAY PRN constipation #20 04/24/24 tabs docusate sodium 100 mg capsule 100 mg PO BID #30 caps 04/24/24 (Colace) metoclopramide HCl 5 mg tablet 5 mg PO QDAY PRN nausea and 04/24/24 constipation #20 tabs pantoprazole 40 mg tablet,delayed 40 mg PO BID 30 days #60 tabs 04/24/24 release pyridoxine (vitamin B6) 10 mg 10 mg PO QDAY 30 days #30 tabs 04/24/24 tablet Allergies Allergy/AdvReac Type Severity Reaction Status Date / Time prochlorperazine Allergy Severe HALLUCINATI Verified 05/15/24 20:06 ONS Sulfa (Sulfonamide Allergy Intermediate RASH Verified 05/15/24 20:06 Antibiotics) Review of Systems Review of Systems Systems Reviewed: All systems reviewed, normal except as documented Past Medical History Past Medical History NEUROLOGIC: Negative Seizures CARDIAC: Positive Hypercholesterolemia; Negative Cardiac Disorders or Congestive Heart Failure RESPIRATORY: Negative Chronic Obstructive Pulmonary Disease (COPD) or Asthma GASTROINTESTINAL: Positive Ulcer GENITOURINARY: Negative Renal Disease ENDOCRINE: Positive Diabetes Mellitus Type 2; Negative Diabetes Mellitus Type 1 HEMATOLOGIC: Negative Sickle Cell Disease OTHER HISTORY: Negative Blood Transfusions, Blood Transfusion Reaction or Anesthesia Reactions Surgical History SURGICAL: Positive Thyroidectomy and Hysterectomy Social History SMOKING STATUS: Never smoker SUBSTANCE USE: does not use ED Exam Narrative Physical exam: GENERAL APPEARANCE: alert and oriented x 4, well-developed, well-nourished, no acute distress VITALS: All vitals were reviewed and the pulse ox is 95% on room air, which is normal according to my interpretation. HEENT: Normocephalic, atraumatic; pupils equal, round, reactive to light; EOMI; mucous membranes pink, moist; oropharynx clear NECK: Supple LUNGS: CTABL; no wheezes, no rales, no rhonchi HEART: Regular rate, regular rhythm; normal S1, S2; no murmurs ABDOMEN: non distended; normal BS; soft, no tenderness, no guarding, no rebound; no masses, no organomegaly, no hernia BACK: no CVA tenderness EXTREMITIES: atraumatic; no edema NEUROLOGIC: awake; alert and oriented x4; cranial nerves II-XII grossly intact; no focal sensory or motor deficits PSYCHIATRIC: appropriate mood and affect SKIN: warm, dry, normal color; no rashes Course Quality Measures none Orders Category Date Time Status Bedside Influenza A&B Antigen Test NOW Care 05/15/24 20:24 Completed EKG (ED ONLY) *Do not use* NOW Care 05/15/24 20:24 Completed EKG (ED Only) Stat Exams 05/15/24 20:24 Draft US venous doppler LE LT Stat Exams 05/15/24 20:24 Completed US venous doppler UE LT Stat Exams 05/15/24 20:24 Completed XR chest 1V portable Stat Exams 05/15/24 20:32 Completed B-Type Natriuretic Peptide Stat Lab 05/15/24 21:54 Completed CBC Stat Lab 05/15/24 21:54 Completed Comprehensive Metabolic Panel Stat Lab 05/15/24 21:54 Completed Partial Thromboplastin Time Stat Lab 05/15/24 21:54 Completed Prothrombin Time with INR Stat Lab 05/15/24 21:54 Completed Troponin I Stat Lab 05/15/24 21:54 Completed Vital Signs Vital signs: Vital Signs Temperature 98.9 F 05/15/24 20:17 Pulse Rate 111 H 05/15/24 20:17 Respiratory Rate 18 05/15/24 20:17 Blood Pressure 133/68 H 05/15/24 20:17 Pulse Oximetry (%) 95 05/15/24 20:17 Oxygen Delivery Method Room Air 05/15/24 20:17 Skin / Abscess / Foreign Body MDM Narrative MDM Narrative:: Scribe Attestation: 05/16/24 - Yumiko Mayorga am scribing for and in the presence of Dr. Mckay. Patient data External records reviewed:: [facility] previous records (Per chart review, patient was admitted here on 04/22/24 for chest pain.) Clinical information provided by:: patient Social determinants that could affect healthcare access:: none Patient has the following chronic illnesses:: DM, HLD How is presenting disease/condition affected by chronic disease/condition?: uneffected by Evaluation data The following diagnostics were reviewed and interpreted by me:: lab results and radiology exam(s) Lab and/or radiology exams considered but not ordered:: none Interpretation Summary: Bedside Influenza is positive, CBC is normal, PT and INR are normal, PTT is normal, Troponin is normal, BNP is normal, Discharge Plan Prescriptions/Referrals Prescriptions/Med Rec: No Action albuterol sulfate 90 mcg/actuation HFA aerosol inhaler 2 puff inhalation QID PRN (Reason: shortness of breath or wheezing) Qty: 8.5 0RF hydrocodone-acetaminophen 5-300 mg tablet 1 tab PO Q6H MDD 3 PRN (Reason: pain) Qty: 10 0RF metoclopramide HCl 5 mg tablet 5 mg PO QDAY PRN (Reason: nausea and constipation) Qty: 20 0RF pantoprazole 40 mg tablet,delayed release (DR/EC) 40 mg PO BID 30 Days Qty: 60 0RF pyridoxine (vitamin B6) 10 mg tablet 10 mg PO QDAY 30 Days Qty: 30 0RF atorvastatin [Lipitor] 40 mg tablet 40 mg PO QDAY 30 Days Qty: 30 0RF docusate sodium [Colace] 100 mg capsule 100 mg PO BID Qty: 30 0RF bisacodyl 5 mg tablet 5 mg PO QDAY PRN (Reason: constipation) Qty: 20 0RF Referrals: No Primary/Family,Physician [Primary Care Provider] - In 1 week Patient/Caregiver Discharge Instructions Print Language: Congolese
[2024-05-16 01:02] VITALS: BP 113/62; PULSE 116; RESP 18; TEMP 37.1; O2SAT 96
--- NOTE | 2024-05-16 01:14 | PC.NURSE ---
PT LEFT AMA, STATED SHE WILL GET RESULTS FROM PCP IN AM PT ENCOURAGED TO RETURN IF SYMPTOMS CONTINUE OR WORSEN. PT ALL RISKS AND CONSEQUENCES EXPLAINED. PT A/OX4 GCS 15, AND APPEARED TO BE IN NO ACUTE DISTRESS.
== END 2024-05-16 01:17 | disposition left against medical advice (07) ==
LOC: SERX 20:38
PROVIDERS: Physician Assistant; Emergency Provider Emergency Medicine
DX: M79.605 Pain in left leg (principal); M79.602 Pain in left arm; R05.9 Cough, unspecified; Z53.29 Procedure and treatment not carried out because of patient's decision for other reasons
CPT/HCPCS: 36415; 71045; 80053; 83880; 84484; 85025; 85610; 85730; 87400; 93005; 93971; 99284

== ENCOUNTER → 2024-05-30 | Outpatient (CLI) | payer OTHER, SELFPAY ==
--- NOTE | 2024-05-30 | XR_ITS ---
Examination: PA lateral chest 2 views TECHNIQUE: Upright PA lateral chest 2 views Exam date and time: May 31, 1999 2512 noon INDICATIONS: Coughing beginning 2 weeks ago. FINDINGS: Normal heart size Pneumonia posterior basal segment left lower lobe obscuring detail left hemidiaphragm Right lung clear IMPRESSION: Pneumonia left base
== END | disposition home or self-care (01) ==
LOC: CDIM 11:19
PROVIDERS: Referring Provider Nurse Practitioner Family; Visit Provider Nurse Practitioner Family
DX: J15.9 Unspecified bacterial pneumonia (principal)
CPT/HCPCS: 71046

== ENCOUNTER → 2024-08-14 | Outpatient (CLI) | payer OTHER, SELFPAY ==
--- NOTE | 2024-08-14 10:50 | XR_ITS ---
Examination: PA lateral chest 2 views TECHNIQUE: Upright PA lateral chest 2 views Date and time: August 14, 2024 1102 hours Comparison May 30, 2024 INDICATIONS: Coughing for months. FINDINGS: Normal heart size Minor scarring in the lingular segment No pneumonia or pulmonary edema Moderate osteopenia IMPRESSION: No pneumonia or pulmonary edema
== END | disposition home or self-care (01) ==
LOC: CDIM 10:29
PROVIDERS: PCP Nurse Practitioner Family; Referring Provider Nurse Practitioner Family; Visit Provider Nurse Practitioner Family
DX: R05.3 Chronic cough (principal)
CPT/HCPCS: 71046

== ENCOUNTER 2024-09-23 07:30 | Day surgery (SDC) | payer OTHER, SELFPAY ==
[2024-09-20 14:02] VITALS: BMI 24.7
[2024-09-23] VITALS (9 sets, daily range): BP systolic 101–148; BP diastolic 60–83; PULSE 74–103; RESP 10–23; TEMP 36.1–36.6; O2SAT 94–96; BMI 24.4
[2024-09-23] MEDS: SODIUM CHLORIDE 0.9% 500 ML 500 ML 20 ML IV (09:30)
[2024-09-23] MEDS: MIDAZOLAM INJ 1 MG/ML VIAL 2 ML (ASD USE ONLY) 2 MG IVP (09:30)
[2024-09-23] MEDS: fentaNYL CIT INJ 50 mCg/ML AMP 2ML (ASD USE ONLY) IVP (09:31)
== END 2024-09-23 10:19 | disposition home or self-care (01) ==
PROVIDERS: PCP Nurse Practitioner Family; Referring Provider Specialist; Visit Provider Specialist
PROC: 0DBE8ZX Excision of Large Intestine, Via Natural or Artificial Opening Endoscopic, Diagnostic (ICD-10-PCS; CPT 45380; principal; 2024-09-23 08:30)
DX: Z12.11 Encounter for screening for malignant neoplasm of colon (principal); K64.9 Unspecified hemorrhoids; K57.30 Diverticulosis of large intestine without perforation or abscess without bleeding
CPT/HCPCS: 45378; J1200; J2250; J3010; J7999